=== PATIENT | female | born 1970 | race Caucasian/White ===

== ENCOUNTER 2016-10-29 05:44 | Emergency (ER) | payer OTHER ==
[~2016-10-29] VITALS: Ht 160 cm; Wt 102.0 kg
[~2016-10-29 05:44] MED LIST: DIPH25CA83 PO; FLUT1DIS3 INH; IPRA12.94 IH; METO50TA5 PO; MONT10TA21 PO; OMEP20CA10 PO; P20 PO; PHEN473S12 PO; SIMV20TA6 PO; ZOLP5TAB2 PO
[2016-10-29] MEDS ORDERED: METHYLPREDNISOLONE SOD SUCC 125 MG/2 ML VIAL IV STA (07:10)
[2016-10-29] MEDS ORDERED: ALBUTEROL (0.083%) 2.5MG/3ML NEB HHN STA (07:10)
[2016-10-29] MEDS ORDERED: IPRATROPIUM BROMIDE (0.02%) 0.5MG/2.5ML NEB HHN STA (07:10)
[2016-10-29] MEDS ORDERED: MORPHINE SULFATE 4 MG/ML CPJ (NOT FOR IM USE) IV ONE (07:15)
[2016-10-29 07:27] LABS: BASOPHILS % 0.5 % (0.0-2.0); EOSINOPHILS % 0.8 % (0.0-5.0); HEMATOCRIT. 35.7 % (36.0-48.0); HEMOGLOBIN. 11.5 g/dL (12.0-16.0); LYMPHOCYTES % 31.7 % (20.0-50.0); MEAN CORPUSCULAR HEMOGLOBIN 26.8 pg (28.0-32.0); MEAN CORPUSCULAR VOLUME 83.2 fL (81.0-99.0); MEAN PLATELET VOLUME 7.7 fl (7.4-10.4); MONOCYTES % 4.5 % (2.0-8.0); NEUTROPHILS % 62.5 % (40.0-76.0); PLATELET 351 x1000/uL (130-400); RED CELL DISTRIBUTION WIDTH 15.5 % (11.6-14.6)
[2016-10-29 07:33] LABS: CHLORIDE 107 mEq/L (98-107)
[2016-10-29 07:41] LABS: CARBON DIOXIDE 28 mEq/L (21-32)
[2016-10-29 07:45] LABS: PARTIAL THROMBOPLASTIN TIME 22.1 sec (24.0-34.0); PROTHROMBIN TIME 10.2 sec
[2016-10-29 07:47] VITALS: BP 97/72
[2016-10-29] MEDS ORDERED: SODIUM CHLORIDE 0.9% 1,000 ML IV ONE (09:13)
[2016-10-29] MEDS ORDERED: PREDNISONE 20MG TABLET PO ONE (09:15)
== END 2016-10-29 10:06 | disposition home or self-care (01) ==
LOC: ER 05:48
DX: J44.1 Chronic obstructive pulmonary disease with (acute) exacerbation (principal); J45.909 Unspecified asthma, uncomplicated; F31.9 Bipolar disorder, unspecified; E11.9 Type 2 diabetes mellitus without complications; I10 Essential (primary) hypertension; F14.10 Cocaine abuse, uncomplicated; Z91.013 Allergy to seafood; Z88.0 Allergy status to penicillin; Z88.8 Allergy status to other drugs, medicaments and biological substances; Z79.899 Other long term (current) drug therapy; Z90.49 Acquired absence of other specified parts of digestive tract; Z87.01 Personal history of pneumonia (recurrent)
CPT/HCPCS: 36415; 71010; 80053; 83880; 84484; 85025; 85610; 85730; 93005; 94644; 99285; J2930; J7512; Z7610; J2270; J7030; J7611

== ENCOUNTER 2017-01-17 17:55 | Emergency (ER) | payer OTHER ==
[~2017-01-17] VITALS: Ht 162.6 cm; Wt 85.0 kg
[~2017-01-17 17:55] MED LIST changes: +ATROV IH; -IPRA12.94 IH; +LEVO500T15 PO; +LIDOCAINE HCL/PF 1% 2ML VIAL ONE; -METO50TA5 PO; -ZOLP5TAB2 PO
[2017-01-17] MEDS ORDERED: IBUPROFEN 600MG TABLET PO STA (18:30)
[2017-01-17] MEDS ORDERED: ACETAMINOPHEN 325MG TABLET PO ONE ×2 (18:45→21:45)
[2017-01-17 18:58] LABS: BG BASE EXCESS -3.9 mmol/L (-2.0-2.0); BG CARBOXYHEMOGLOBIN 0.7 % (0.5-1.5); BG FRACTION INSPIRED OXYGEN 28; BG METHEMOGLOBIN 0.4 % (0.0-1.5); BG OXYHEMOGLOBIN 96.9 % (94.0-97.0); BG PCO2 32.9 mmHg (35.0-45.0); BG PH 7.402 (7.350-7.450); BG PO2 102.8 mmHg (75.0-100.0); BG SAMPLE SITE RIGHT RADIAL; BG TOTAL HEMOGLOBIN 13.1 g/dL (12.0-18.0); BG VENT MODE NASAL CANNULA
[2017-01-17 19:29] LABS: BASOPHILS % 0.4 % (0.0-2.0); EOSINOPHILS % 0.2 % (0.0-5.0); HEMATOCRIT. 36.7 % (36.0-48.0); LYMPHOCYTES % 13.3 % (20.0-50.0); MEAN CORPUSCULAR HEMOGLOBIN 25.8 pg (28.0-32.0); MEAN CORPUSCULAR VOLUME 78.5 fL (81.0-99.0); MEAN PLATELET VOLUME 7.8 fl (7.4-10.4); MONOCYTES % 1.4 % (2.0-8.0); NEUTROPHILS % 84.7 % (40.0-76.0); PLATELET 355 x1000/uL (130-400); RED BLOOD CELL COUNT 4.68 mill/uL (4.2-5.4); RED CELL DISTRIBUTION WIDTH 16.4 % (11.6-14.6)
[2017-01-17 19:33] LABS: CHLORIDE 107 mEq/L (98-107)
[2017-01-17 19:36] LABS: CARBON DIOXIDE 27 mEq/L (21-32)
[2017-01-17] MEDS ORDERED: DILTIAZEM HCL 5MG/ML 5ML VIAL IV ONE (22:45)
[2017-01-17] MEDS ORDERED: DILTIAZEM HCL 240MG ER (24HR) PO ONE (22:45)
[2017-01-17 22:54] VITALS: BP 101/54
== END 2017-01-17 23:11 | disposition home or self-care (01) ==
LOC: ER 18:26
DX: J84.10 Pulmonary fibrosis, unspecified (principal); R05 Cough; E78.00 Pure hypercholesterolemia, unspecified; E11.9 Type 2 diabetes mellitus without complications; I11.9 Hypertensive heart disease without heart failure; J44.9 Chronic obstructive pulmonary disease, unspecified; J45.909 Unspecified asthma, uncomplicated; Z88.0 Allergy status to penicillin; Z91.013 Allergy to seafood; Z91.018 Allergy to other foods; Z90.49 Acquired absence of other specified parts of digestive tract
CPT/HCPCS: 36415; 36600; 71010; 80053; 81025; 82375; 82805; 85025; 85610; 93005; 99285; J3490; Z7610

== ENCOUNTER 2017-01-30 18:47 | Inpatient (IN) | payer MEDICAID, OTHER ==
[~2017-01-30] VITALS: Ht 167.6 cm; Wt 115.9 kg
[~2017-01-30 18:47] MED LIST changes: -LEVO500T15 PO; +LEVO500T2 PO; -LIDOCAINE HCL/PF 1% 2ML VIAL ONE
[2017-01-30 20:11] LABS: BASOPHILS % 0.6 % (0.0-2.0); EOSINOPHILS % 0.8 % (0.0-5.0); HEMATOCRIT. 35.7 % (36.0-48.0); HEMOGLOBIN. 11.6 g/dL (12.0-16.0); LYMPHOCYTES % 29.3 % (20.0-50.0); MEAN CORPUSCULAR HEMOGLOBIN 25.8 pg (28.0-32.0); MEAN CORPUSCULAR VOLUME 79.6 fL (81.0-99.0); MEAN PLATELET VOLUME 7.7 fl (7.4-10.4); MONOCYTES % 5.2 % (2.0-8.0); NEUTROPHILS % 64.1 % (40.0-76.0); PLATELET 378 x1000/uL (130-400); RED BLOOD CELL COUNT 4.48 mill/uL (4.2-5.4); RED CELL DISTRIBUTION WIDTH 17.2 % (11.6-14.6)
[2017-01-30 20:19] LABS: PROTHROMBIN TIME 10.2 sec (9.4-11.6)
[2017-01-30 20:30] LABS: CARBON DIOXIDE 30 mEq/L (21-32); CHLORIDE 107 mEq/L (98-107); TROPONIN I < 0.02 ng/mL (0.00-0.04)
[2017-01-30] MEDS ORDERED: FUROSEMIDE 40MG/4ML VIAL IVP ONE (21:30)
[2017-01-30 22:35] VITALS: BP 105/56
[2017-01-30] MEDS ORDERED: SIMV20TA6 PO (23:19)
[2017-01-30 23:37] VITALS: BP 105/56
[2017-01-30] MEDS ORDERED: DOCUSATE SODIUM 100MG CAPSULE PO PRN (23:45)
[2017-01-30] MEDS ORDERED: ACETAMINOPHEN 325MG TABLET PO PRN (23:45)
[2017-01-30] MEDS ORDERED: MAGNESIUM/ALUMINUM HYDROXIDE/SIMETHICONE 30ML UDC PO PRN (23:45)
[2017-01-30] MEDS ORDERED: CLONIDINE 0.1MG TABLET PO PRN (23:45)
[2017-01-30] MEDS ORDERED: ONDANSETRON HCL 4MG/2ML VIAL IV PRN (23:45)
[2017-01-30] MEDS ORDERED: IPRATROPIUM/ALBUTEROL 0.5-3(2.5)MG/3ML NEB INH PRN (23:45)
[2017-01-30] MEDS ORDERED: HYDROCODONE/ACETAMINOPHEN 5/325MG TABLET PO PRN (23:45)
[2017-01-31] VITALS: BP 98/63
[2017-01-31] MEDS ORDERED: ENOXAPARIN 40MG/0.4ML SYR SUBCUT SCH
[2017-01-31] MEDS: ENOXAPARIN 40MG/0.4ML SYR SUBCUT SCH ×2 (00:30→12:28)
[2017-01-31 04:00] VITALS: BP 97/53
[2017-01-31 05:55] LABS: BASOPHILS % 0.9 % (0.0-2.0); EOSINOPHILS % 3.4 % (0.0-5.0); HEMATOCRIT. 35.3 % (36.0-48.0); HEMOGLOBIN. 11.5 g/dL (12.0-16.0); LYMPHOCYTES % 32.4 % (20.0-50.0); MEAN CORPUSCULAR HEMOGLOBIN 25.8 pg (28.0-32.0); MEAN CORPUSCULAR VOLUME 79.4 fL (81.0-99.0); MONOCYTES % 5.8 % (2.0-8.0); NEUTROPHILS % 57.5 % (40.0-76.0); PLATELET 383 x1000/uL (130-400); RED BLOOD CELL COUNT 4.44 mill/uL (4.2-5.4); RED CELL DISTRIBUTION WIDTH 17.1 % (11.6-14.6)
[2017-01-31 06:18] LABS: CREATINE KINASE 12 IU/L (26-192); CREATINE KINASE MB FRACTION < 0.5 ng/mL (0.5-3.6); TROPONIN I < 0.02 ng/mL (0.00-0.04)
[2017-01-31 08:00] VITALS: BP 96/65
[2017-01-31] MEDS: FUROSEMIDE 40MG/4ML VIAL IV SCH (09:00)
[2017-01-31] MEDS: MORPHINE SULFATE 2 MG/ML CPJ (NOT FOR IM USE) IV PRN ×3 (11:19→23:26)
[2017-01-31 12:00] VITALS: BP 104/63
[2017-01-31 16:00] VITALS: BP 99/59
[2017-01-31] MEDS: IPRATROPIUM/ALBUTEROL 0.5-3(2.5)MG/3ML NEB HHN SCH ×2 (16:00→20:58)
[2017-01-31 16:02] LABS: CLARITY URINE CLEAR (CLEAR); COLOR URINE YELLOW (YELLOW); GLUCOSE URINE NEGATIVE (NEGATIVE); KETONES URINE NEGATIVE (NEGATIVE); LEUKOCYTE ESTERASE URINE TRACE (NEGATIVE); NITRITE URINE NEGATIVE (NEGATIVE); OCCULT BLOOD URINE TRACE (NEGATIVE); PROTEIN URINE NEGATIVE (NEGATIVE); SPECIFIC GRAVITY URINE 1.022 (1.005-1.030)
[2017-01-31 16:22] LABS: *AMPHETAMINES SCREEN URINE NEGATIVE (NEGATIVE); *BARBITURATES SCREEN URINE NEGATIVE (NEGATIVE); *BENZODIAZEPINES SCREEN URINE NEGATIVE (NEGATIVE); CANNABINOID URINE SCREEN NEGATIVE (NEGATIVE); METHADONE URINE SCREEN NEGATIVE (NEGATIVE); PHENCYCLIDINE URINE SCREEN NEGATIVE (NEGATIVE)
[2017-01-31 16:24] LABS: CREATINE KINASE 13 IU/L (26-192); TROPONIN I < 0.02 ng/mL (0.00-0.04)
[2017-01-31 16:25] LABS: CREATINE KINASE MB FRACTION < 0.5 ng/mL (0.5-3.6)
[2017-01-31 16:27] LABS: *COCAINE SCREEN URINE PRESUMTIVE POSITIVE (NEGATIVE); OPIATES URINE SCREEN PRESUMTIVE POSITIVE (NEGATIVE)
[2017-02-01] VITALS: BP 109/61
[2017-02-01 04:00] VITALS: BP 95/46
[2017-02-01] MEDS ORDERED: DEXTROSE 50% WATER 50ML SYRINGE IV PRN (05:45)
[2017-02-01] MEDS: INSULIN LISPRO 100 UNITS/ML SUBCUT SCH ×4 (06:25→20:19)
[2017-02-01] MEDS: BLOOD SUGAR DIAGNOSTIC STRIP TEST SCH ×4 (06:25→20:03)
[2017-02-01 06:57] LABS: BASOPHILS % 0.9 % (0.0-2.0); HEMATOCRIT. 34.7 % (36.0-48.0); HEMOGLOBIN. 11.3 g/dL (12.0-16.0); LYMPHOCYTES % 34.2 % (20.0-50.0); MEAN CORPUSCULAR HEMOGLOBIN 25.7 pg (28.0-32.0); MEAN CORPUSCULAR VOLUME 78.8 fL (81.0-99.0); MEAN PLATELET VOLUME 7.9 fl (7.4-10.4); MONOCYTES % 6.6 % (2.0-8.0); NEUTROPHILS % 52.3 % (40.0-76.0); PLATELET 352 x1000/uL (130-400); RED BLOOD CELL COUNT 4.41 mill/uL (4.2-5.4); RED CELL DISTRIBUTION WIDTH 17.1 % (11.6-14.6)
[2017-02-01 07:22] LABS: CARBON DIOXIDE 29 mEq/L (21-32); CHLORIDE 103 mEq/L (98-107)
[2017-02-01 07:28] LABS: TROPONIN I < 0.02 ng/mL (0.00-0.04)
[2017-02-01 08:03] VITALS: BP 93/55
[2017-02-01] MEDS: IPRATROPIUM/ALBUTEROL 0.5-3(2.5)MG/3ML NEB HHN SCH ×2 (08:05)
[2017-02-01] MEDS: FUROSEMIDE 40MG/4ML VIAL IV SCH (08:26)
[2017-02-01] MEDS: MORPHINE SULFATE 2 MG/ML CPJ (NOT FOR IM USE) IV PRN ×3 (08:34→20:31)
[2017-02-01 11:14] VITALS: BP 110/73
[2017-02-01] MEDS: ENOXAPARIN 40MG/0.4ML SYR SUBCUT SCH ×2 (12:17)
[2017-02-01] MEDS ORDERED: HYDR-4001 PO (13:01)
[2017-02-01] MEDS: METHYLPREDNISOLONE SOD SUCC 125 MG/2 ML VIAL IV SCH ×2 (14:20→20:12)
[2017-02-01] MEDS ORDERED: AMLODIPINE 5MG TABLET PO SCH (15:00)
[2017-02-01 16:00] VITALS: BP 87/55
[2017-02-01 20:00] VITALS: BP 134/87
[2017-02-01] MEDS ORDERED: IPRATROPIUM BROMIDE (0.02%) 0.5MG/2.5ML NEB HHN SCH (22:15)
[2017-02-02] VITALS: BP 102/65
[2017-02-02] MEDS: ENOXAPARIN 40MG/0.4ML SYR SUBCUT SCH ×2 (00:41→12:00)
[2017-02-02] MEDS: MORPHINE SULFATE 2 MG/ML CPJ (NOT FOR IM USE) IV PRN ×3 (00:55→12:05)
[2017-02-02] MEDS: IPRATROPIUM BROMIDE (0.02%) 0.5MG/2.5ML NEB HHN SCH ×3 (01:11→11:27)
[2017-02-02] MEDS: METHYLPREDNISOLONE SOD SUCC 125 MG/2 ML VIAL IV SCH (06:21)
[2017-02-02] MEDS: BLOOD SUGAR DIAGNOSTIC STRIP TEST SCH ×2 (06:21→12:05)
[2017-02-02] MEDS: INSULIN LISPRO 100 UNITS/ML SUBCUT SCH ×2 (06:22→12:22)
[2017-02-02] MEDS: AMLODIPINE 5MG TABLET PO SCH ×2 (09:00→09:54)
[2017-02-02 09:06] VITALS: BP 114/80
[2017-02-02] MEDS: FUROSEMIDE 40MG/4ML VIAL IV SCH (09:54)
[2017-02-02 12:24] VITALS: BP 115/76
[2017-02-02 13:22] VITALS: BP 115/76
[2017-02-03] MEDS ORDERED: PREDNISONE 20MG TABLET PO SCH (09:00)
== END 2017-02-02 15:00 | disposition home or self-care (01) | DRG 140 ==
LOC: ER 19:20 → 5WST 19:28 → EDBEDREQ 19:37 → ENRESERV 21:27
PROVIDERS: ADMIT Internal Medicine; ATTEND Internal Medicine
DX: J44.0 Chronic obstructive pulmonary disease with (acute) lower respiratory infection (principal); J96.20 Acute and chronic respiratory failure, unspecified whether with hypoxia or hypercapnia; I50.33 Acute on chronic diastolic (congestive) heart failure; J18.9 Pneumonia, unspecified organism; I95.9 Hypotension, unspecified; I24.9 Acute ischemic heart disease, unspecified; J84.10 Pulmonary fibrosis, unspecified; I11.0 Hypertensive heart disease with heart failure; Z99.81 Dependence on supplemental oxygen; J44.1 Chronic obstructive pulmonary disease with (acute) exacerbation; M54.10 Radiculopathy, site unspecified; G89.29 Other chronic pain; F31.9 Bipolar disorder, unspecified; F14.10 Cocaine abuse, uncomplicated; E11.9 Type 2 diabetes mellitus without complications; E78.00 Pure hypercholesterolemia, unspecified; E78.5 Hyperlipidemia, unspecified; Z79.899 Other long term (current) drug therapy; Z88.0 Allergy status to penicillin; Z91.013 Allergy to seafood; Z91.018 Allergy to other foods; Z90.49 Acquired absence of other specified parts of digestive tract; I25.2 Old myocardial infarction; Z87.891 Personal history of nicotine dependence; Z80.9 Family history of malignant neoplasm, unspecified; Z83.3 Family history of diabetes mellitus; Z82.49 Family history of ischemic heart disease and other diseases of the circulatory system
CPT/HCPCS: 36415; 71010; 80053; 80305; 81001; 82550; 82553; 82962; 83735; 83880; 84443; 84484; 85025; 85379; 85610; 93005; 93970; 94640; 99285; C1893; J1650; J1815; J1940; J2270; J2930; J7620

== ENCOUNTER 2017-02-23 23:25 | Emergency (ER) | payer MEDICAID ==
[~2017-02-23] VITALS: Ht 165.1 cm; Wt 100.0 kg
[~2017-02-23 23:25] MED LIST changes: -FLUT1DIS3 INH; +HYDR-4001 PO; -LEVO500T2 PO; -PHEN473S12 PO
[2017-02-23] MEDS ORDERED: HYDROCODONE/ACETAMINOPHEN 5/325MG TABLET PO ONE (23:45)
[2017-02-24 05:05] VITALS: BP 109/56
== END 2017-02-24 05:08 | disposition home or self-care (01) ==
LOC: ER 23:40
DX: S09.90XA Unspecified injury of head, initial encounter (principal); S70.00XA Contusion of unspecified hip, initial encounter; J44.9 Chronic obstructive pulmonary disease, unspecified; I10 Essential (primary) hypertension; E78.00 Pure hypercholesterolemia, unspecified; E11.9 Type 2 diabetes mellitus without complications; Z88.0 Allergy status to penicillin; Z91.013 Allergy to seafood; W19.XXXA Unspecified fall, initial encounter; Y93.89 Activity, other specified; Y92.89 Other specified places as the place of occurrence of the external cause; Y99.8 Other external cause status
CPT/HCPCS: 70450; 72125; 72192; 73700; 99284; Z7610

== ENCOUNTER 2017-03-02 22:59 | Inpatient (IN) | payer MEDICAID ==
[~2017-03-02] VITALS: Ht 160 cm; Wt 107.0 kg
[2017-03-02] MEDS ORDERED: METHYLPREDNISOLONE SOD SUCC 125 MG/2 ML VIAL IV STA (23:05)
[2017-03-02] MEDS ORDERED: IPRATROPIUM BROMIDE (0.02%) 0.5MG/2.5ML NEB HHN STA (23:05)
[2017-03-02] MEDS ORDERED: MAGNESIUM 2 G PREMIX 50 ML IV ONE (23:15)
[2017-03-02] MEDS: ALBUTEROL (0.083%) 2.5MG/3ML NEB HHN SCH (23:30)
[2017-03-02 23:56] LABS: INR 1.1; PROTHROMBIN TIME 11.1 sec (9.4-11.6)
[2017-03-02 23:58] LABS: BASOPHILS % 0.5 % (0.0-2.0); EOSINOPHILS % 2.5 % (0.0-5.0); HEMATOCRIT. 34.2 % (36.0-48.0); HEMOGLOBIN. 10.9 g/dL (12.0-16.0); LYMPHOCYTES % 47.7 % (20.0-50.0); MEAN CORPUSCULAR HEMOGLOBIN 25.5 pg (28.0-32.0); MEAN CORPUSCULAR VOLUME 79.9 fL (81.0-99.0); MEAN PLATELET VOLUME 7.8 fl (7.4-10.4); MONOCYTES % 6.1 % (2.0-8.0); NEUTROPHILS % 43.2 % (40.0-76.0); PLATELET 421 x1000/uL (130-400); RED BLOOD CELL COUNT 4.28 mill/uL (4.2-5.4); RED CELL DISTRIBUTION WIDTH 17.2 % (11.6-14.6)
[2017-03-03 00:03] LABS: CARBON DIOXIDE 25 mEq/L (21-32); CHLORIDE 104 mEq/L (98-107); TROPONIN I 0.29 ng/mL (0.00-0.04)
[2017-03-03] MEDS: ALBUTEROL (0.083%) 2.5MG/3ML NEB HHN SCH ×2 (00:30)
[2017-03-03] MEDS ORDERED: MORPHINE SULFATE 4 MG/ML CPJ (NOT FOR IM USE) IV ONE ×2 (00:45→05:45)
[2017-03-03] MEDS ORDERED: LORAZEPAM 2MG/ML CPJ IV ONE (00:45)
[2017-03-03] MEDS ORDERED: ASPIRIN 81MG TABLET PO ONE (03:00)
[2017-03-03 11:05] VITALS: BP 109/71
[2017-03-03 11:44] VITALS: BP 109/71
[2017-03-03] MEDS ORDERED: DOCUSATE SODIUM 100MG CAPSULE PO PRN (12:00)
[2017-03-03] MEDS ORDERED: IPRATROPIUM/ALBUTEROL 0.5-3(2.5)MG/3ML NEB INH PRN ×2 (12:00)
[2017-03-03] MEDS ORDERED: ONDANSETRON HCL 4MG/2ML VIAL IV PRN (12:00)
[2017-03-03] MEDS ORDERED: FUROSEMIDE 40MG/4ML VIAL IV SCH (12:00)
[2017-03-03] MEDS ORDERED: ACETAMINOPHEN 325MG TABLET PO PRN (12:00)
[2017-03-03] MEDS ORDERED: LORAZEPAM 1MG TABLET PO PRN (12:00)
[2017-03-03] MEDS ORDERED: CLONIDINE 0.1MG TABLET PO PRN (12:00)
[2017-03-03] MEDS ORDERED: DIPHENHYDRAMINE 25MG CAPSULE PO PRN (12:00)
[2017-03-03] MEDS ORDERED: OMEPRAZOLE 20MG CAPSULE EXTENDED RELEASE PO SCH (12:00)
[2017-03-03] MEDS ORDERED: DIPHENHYDRAMINE 50MG/ML VIAL IV PRN (12:00)
[2017-03-03] MEDS ORDERED: CEFTRIAXONE 1 G PREMIX 50 ML IV SCH (14:00)
[2017-03-03] MEDS: HYDROCODONE/ACETAMINOPHEN 10/325MG TABLET PO PRN ×2 (14:25→18:33)
[2017-03-03 16:00] VITALS: BP 102/69
[2017-03-03] MEDS ORDERED: ONDANSETRON HCL 4MG/2ML VIAL IM PRN (18:00)
[2017-03-03] MEDS ORDERED: IPRATROPIUM/ALBUTEROL 0.5-3(2.5)MG/3ML NEB HHN PRN (18:15)
[2017-03-03 20:00] VITALS: BP 102/67
[2017-03-03 20:41] LABS: TROPONIN I 0.1 ng/mL (0.00-0.04)
[2017-03-03] MEDS ORDERED: MONTELUKAST SODIUM 10MG TABLET PO SCH (21:00)
[2017-03-04] MEDS ORDERED: FUROSEMIDE 40MG TABLET PO SCH (09:00)
[2017-03-04] MEDS ORDERED: LEVOFLOXACIN 500MG TABLET PO SCH (21:00)
== END 2017-03-03 20:48 | disposition left against medical advice (07) | DRG 194 ==
LOC: ER 23:04 → 7WST 03-03 03:06 → EDBEDREQ 03-03 10:04 → ENRESERV 03-03 10:06
PROVIDERS: ADMIT Internal Medicine; ATTEND Internal Medicine
PROC: 5A09357 Assistance with Respiratory Ventilation, Less than 24 Consecutive Hours, Continuous Positive Airway Pressure (ICD-10-PCS; principal; 2017-03-03)
DX: I11.0 Hypertensive heart disease with heart failure (principal); J96.11 Chronic respiratory failure with hypoxia; Z99.81 Dependence on supplemental oxygen; E44.0 Moderate protein-calorie malnutrition; F11.20 Opioid dependence, uncomplicated; D50.9 Iron deficiency anemia, unspecified; F14.10 Cocaine abuse, uncomplicated; Z68.41 Body mass index [BMI] 40.0-44.9, adult; J44.9 Chronic obstructive pulmonary disease, unspecified; I50.33 Acute on chronic diastolic (congestive) heart failure; R55 Syncope and collapse; F17.210 Nicotine dependence, cigarettes, uncomplicated; Z53.21 Procedure and treatment not carried out due to patient leaving prior to being seen by health care provider; E66.01 Morbid (severe) obesity due to excess calories; M54.9 Dorsalgia, unspecified; G89.29 Other chronic pain; Z82.49 Family history of ischemic heart disease and other diseases of the circulatory system; Z88.6 Allergy status to analgesic agent; Z88.0 Allergy status to penicillin; Z91.013 Allergy to seafood; Z88.8 Allergy status to other drugs, medicaments and biological substances; Z91.018 Allergy to other foods; Z79.899 Other long term (current) drug therapy; Z90.49 Acquired absence of other specified parts of digestive tract
CPT/HCPCS: 36415; 71010; 80053; 82550; 83880; 84484; 85025; 85610; 93005; 93880; 94640; 94660; 96374; 96375; 96376; 99285; J0696; J1940; J2060; J2270; J2930; J3475; J7050; J7611; J7620

== ENCOUNTER 2017-03-26 14:44 | Emergency (ER) | payer MEDICAID ==
[~2017-03-26] VITALS: Ht 157.5 cm; Wt 91.0 kg
[2017-03-26 17:54] LABS: EOSINOPHILS % 4.1 % (0.0-5.0); HEMATOCRIT. 37.9 % (36.0-48.0); LYMPHOCYTES % 32.8 % (20.0-50.0); MEAN CORPUSCULAR HEMOGLOBIN 25.1 pg (28.0-32.0); MEAN CORPUSCULAR VOLUME 79.4 fL (81.0-99.0); MEAN PLATELET VOLUME 7.7 fl (7.4-10.4); MONOCYTES % 6.7 % (2.0-8.0); NEUTROPHILS % 55.4 % (40.0-76.0); PLATELET 351 x1000/uL (130-400); RED BLOOD CELL COUNT 4.77 mill/uL (4.2-5.4); RED CELL DISTRIBUTION WIDTH 17.6 % (11.6-14.6)
[2017-03-26 18:02] LABS: HCG SCREEN NEGATIVE
[2017-03-26 18:04] LABS: CARBON DIOXIDE 28 mEq/L (21-32); CHLORIDE 106 mEq/L (98-107); ETHANOL BLOOD < 10 mg/dL
[2017-03-26] MEDS ORDERED: MORPHINE SULFATE 10 MG/ML CPJ IM ONE (22:30)
[2017-03-26 22:42] LABS: CLARITY URINE TURBID (CLEAR); COLOR URINE DARK YELLOW (YELLOW); GLUCOSE URINE NEGATIVE (NEGATIVE); KETONES URINE TRACE (NEGATIVE); LEUKOCYTE ESTERASE URINE 2+ (NEGATIVE); NITRITE URINE POSITIVE (NEGATIVE); OCCULT BLOOD URINE 2+ (NEGATIVE); PROTEIN URINE TRACE (NEGATIVE); SPECIFIC GRAVITY URINE 1.024 (1.005-1.030)
[2017-03-26 22:55] LABS: *AMPHETAMINES SCREEN URINE NEGATIVE (NEGATIVE); *BARBITURATES SCREEN URINE NEGATIVE (NEGATIVE); *BENZODIAZEPINES SCREEN URINE NEGATIVE (NEGATIVE); CANNABINOID URINE SCREEN NEGATIVE (NEGATIVE); PHENCYCLIDINE URINE SCREEN NEGATIVE (NEGATIVE)
[2017-03-26 23:09] LABS: *COCAINE SCREEN URINE PRESUMTIVE POSITIVE (NEGATIVE); METHADONE URINE SCREEN PRESUMTIVE POSITIVE (NEGATIVE)
[2017-03-26 23:10] LABS: OPIATES URINE SCREEN PRESUMTIVE POSITIVE (NEGATIVE)
[2017-03-27 00:20] VITALS: BP 131/74
== END 2017-03-27 02:03 | disposition home or self-care (01) ==
LOC: ER 14:58
DX: R45.851 Suicidal ideations (principal); N39.0 Urinary tract infection, site not specified; R44.0 Auditory hallucinations; I11.0 Hypertensive heart disease with heart failure; I50.9 Heart failure, unspecified; J44.9 Chronic obstructive pulmonary disease, unspecified; E11.9 Type 2 diabetes mellitus without complications; F32.9 Major depressive disorder, single episode, unspecified; Z88.0 Allergy status to penicillin; Z88.6 Allergy status to analgesic agent; Z91.013 Allergy to seafood; Z91.018 Allergy to other foods
CPT/HCPCS: 36415; 80048; 80305; 81001; 84703; 85025; 87077; 87086; 87186; 96372; 99284; G0482; J2270; Z7610

== ENCOUNTER 2017-04-04 21:18 | Emergency (ER) | payer MEDICAID ==
[~2017-04-04] VITALS: Ht 160 cm; Wt 111.0 kg
[2017-04-04 21:37] VITALS: BP 104/60
[2017-04-04 22:48] LABS: BASOPHILS % 0.5 % (0.0-2.0); EOSINOPHILS % 2.9 % (0.0-5.0); HEMATOCRIT. 38.5 % (36.0-48.0); HEMOGLOBIN. 12.7 g/dL (12.0-16.0); LYMPHOCYTES % 31.7 % (20.0-50.0); MEAN CORPUSCULAR HEMOGLOBIN 25.7 pg (28.0-32.0); MEAN CORPUSCULAR VOLUME 78.2 fL (81.0-99.0); MEAN PLATELET VOLUME 7.8 fl (7.4-10.4); MONOCYTES % 7.1 % (2.0-8.0); NEUTROPHILS % 57.8 % (40.0-76.0); PLATELET 346 x1000/uL (130-400); RED BLOOD CELL COUNT 4.92 mill/uL (4.2-5.4); RED CELL DISTRIBUTION WIDTH 17.1 % (11.6-14.6)
[2017-04-04 22:53] LABS: PROTHROMBIN TIME 10.7 sec (9.4-11.6)
[2017-04-04 23:03] LABS: CARBON DIOXIDE 30 mEq/L (21-32); CHLORIDE 102 mEq/L (98-107)
[2017-04-04 23:04] LABS: TROPONIN I < 0.02 ng/mL (0.00-0.04)
[2017-04-04] MEDS ORDERED: ACETAMINOPHEN 325MG TABLET PO ONE (23:45)
== END 2017-04-05 00:10 | disposition home or self-care (01) ==
LOC: ER 21:51
DX: R07.89 Other chest pain (principal); J84.10 Pulmonary fibrosis, unspecified; I50.9 Heart failure, unspecified; M41.9 Scoliosis, unspecified; Z99.81 Dependence on supplemental oxygen; Z86.59 Personal history of other mental and behavioral disorders; Z88.0 Allergy status to penicillin; Z91.013 Allergy to seafood; Z88.8 Allergy status to other drugs, medicaments and biological substances; Z91.018 Allergy to other foods
CPT/HCPCS: 36415; 71010; 80053; 83880; 84484; 85025; 85610; 93005; 99285; Z7610

== ENCOUNTER 2017-04-07 15:26 | Emergency (ER) | payer MEDICAID ==
[~2017-04-07] VITALS: Ht 165.1 cm; Wt 100.0 kg
[2017-04-07] MEDS ORDERED: MORPHINE SULFATE 4 MG/ML CPJ (NOT FOR IM USE) IV STA (15:58)
[2017-04-07] MEDS ORDERED: ONDANSETRON HCL 4MG/2ML VIAL IV STA (15:58)
[2017-04-07] MEDS ORDERED: SODIUM CHLORIDE 0.9% 1,000 ML IV ONE (15:58)
[2017-04-07 16:31] LABS: BASOPHILS % 0.5 % (0.0-2.0); LYMPHOCYTES % 27.7 % (20.0-50.0); MEAN CORPUSCULAR HEMOGLOBIN 25.7 pg (28.0-32.0); MEAN CORPUSCULAR VOLUME 79.1 fL (81.0-99.0); MONOCYTES % 7.4 % (2.0-8.0); NEUTROPHILS % 54.4 % (40.0-76.0); PLATELET 289 x1000/uL (130-400); RED BLOOD CELL COUNT 4.68 mill/uL (4.2-5.4); RED CELL DISTRIBUTION WIDTH 16.9 % (11.6-14.6)
[2017-04-07 16:33] LABS: HCG SCREEN NEGATIVE
[2017-04-07 16:36] LABS: CHLORIDE 103 mEq/L (98-107)
[2017-04-07 16:37] LABS: PROTHROMBIN TIME 10.8 sec (9.4-11.6)
[2017-04-07 16:40] LABS: CARBON DIOXIDE 30 mEq/L (21-32)
[2017-04-07] MEDS ORDERED: IOHEXOL-300 100 ML BOTTLE ONE (17:31)
[2017-04-07 20:50] LABS: GLUCOSE URINE NEGATIVE (NEGATIVE); KETONES URINE NEGATIVE (NEGATIVE); LEUKOCYTE ESTERASE URINE 1+ (NEGATIVE); NITRITE URINE POSITIVE (NEGATIVE); OCCULT BLOOD URINE 2+ (NEGATIVE); PROTEIN URINE NEGATIVE (NEGATIVE); SPECIFIC GRAVITY URINE 1.072 (1.005-1.030)
[2017-04-07 20:55] LABS: CLARITY URINE CLOUDY (CLEAR); COLOR URINE YELLOW (YELLOW)
[2017-04-07 23:00] VITALS: BP 95/62
== END 2017-04-07 23:00 | disposition home or self-care (01) ==
LOC: ER 15:40
DX: N39.0 Urinary tract infection, site not specified (principal); R11.2 Nausea with vomiting, unspecified; R19.7 Diarrhea, unspecified; R50.9 Fever, unspecified; F41.9 Anxiety disorder, unspecified; I11.0 Hypertensive heart disease with heart failure; I50.9 Heart failure, unspecified; F14.10 Cocaine abuse, uncomplicated; F31.9 Bipolar disorder, unspecified; Z90.49 Acquired absence of other specified parts of digestive tract; Z87.01 Personal history of pneumonia (recurrent); Z88.0 Allergy status to penicillin; Z88.1 Allergy status to other antibiotic agents; Z88.6 Allergy status to analgesic agent; Z91.018 Allergy to other foods; Z91.013 Allergy to seafood
CPT/HCPCS: 36415; 74177; 80053; 81001; 83690; 84703; 85025; 85610; 96361; 96374; 96375; 99285; J2270; J2405; Q9967; Z7610; J7030

== ENCOUNTER 2017-05-10 00:54 | Emergency (ER) | payer MEDICAID ==
[~2017-05-10] VITALS: Ht 160 cm; Wt 90.0 kg
[2017-05-10] MEDS ORDERED: METHYLPREDNISOLONE SOD SUCC 125 MG/2 ML VIAL IV STA (03:09)
[2017-05-10] MEDS ORDERED: IPRATROPIUM/ALBUTEROL 0.5-3(2.5)MG/3ML NEB HHN ONE (03:15)
[2017-05-10 03:48] LABS: BASOPHILS % 0.7 % (0.0-2.0); CHLORIDE 105 mEq/L (98-107); EOSINOPHILS % 6.1 % (0.0-5.0); HEMATOCRIT. 38.4 % (36.0-48.0); HEMOGLOBIN. 12.6 g/dL (12.0-16.0); LYMPHOCYTES % 31.9 % (20.0-50.0); MEAN CORPUSCULAR HEMOGLOBIN 25.3 pg (28.0-32.0); MEAN CORPUSCULAR VOLUME 77.2 fL (81.0-99.0); MEAN PLATELET VOLUME 7.9 fl (7.4-10.4); MONOCYTES % 6.5 % (2.0-8.0); NEUTROPHILS % 54.8 % (40.0-76.0); PLATELET 330 x1000/uL (130-400); RED BLOOD CELL COUNT 4.98 mill/uL (4.2-5.4); RED CELL DISTRIBUTION WIDTH 17.7 % (11.6-14.6)
[2017-05-10 03:58] LABS: CARBON DIOXIDE 30 mEq/L (21-32)
[2017-05-10] MEDS ORDERED: ACETAMINOPHEN 325MG TABLET PO ONE (04:45)
[2017-05-10 05:01] LABS: CLARITY URINE CLOUDY (CLEAR); COLOR URINE YELLOW (YELLOW); KETONES URINE NEGATIVE (NEGATIVE); LEUKOCYTE ESTERASE URINE 1+ (NEGATIVE); NITRITE URINE NEGATIVE (NEGATIVE); OCCULT BLOOD URINE NEGATIVE (NEGATIVE); PROTEIN URINE NEGATIVE (NEGATIVE); SPECIFIC GRAVITY URINE 1.021 (1.005-1.030)
[2017-05-10 05:22] LABS: *AMPHETAMINES SCREEN URINE NEGATIVE (NEGATIVE); *BARBITURATES SCREEN URINE NEGATIVE (NEGATIVE); *BENZODIAZEPINES SCREEN URINE NEGATIVE (NEGATIVE); CANNABINOID URINE SCREEN NEGATIVE (NEGATIVE); PHENCYCLIDINE URINE SCREEN NEGATIVE (NEGATIVE)
[2017-05-10 05:25] LABS: *COCAINE SCREEN URINE PRESUMTIVE POSITIVE (NEGATIVE); METHADONE URINE SCREEN PRESUMTIVE POSITIVE (NEGATIVE); OPIATES URINE SCREEN PRESUMTIVE POSITIVE (NEGATIVE)
[2017-05-10 07:42] VITALS: BP 107/50
== END 2017-05-10 07:48 | disposition home or self-care (01) ==
LOC: ER 01:01
DX: J06.9 Acute upper respiratory infection, unspecified (principal); N39.0 Urinary tract infection, site not specified; I11.0 Hypertensive heart disease with heart failure; I50.9 Heart failure, unspecified; J84.10 Pulmonary fibrosis, unspecified; Z88.0 Allergy status to penicillin; Z99.81 Dependence on supplemental oxygen; Z86.59 Personal history of other mental and behavioral disorders
CPT/HCPCS: 36415; 71010; 80053; 80305; 81001; 83690; 83880; 85025; 93005; 94640; 96374; 99285; J2930; Z7610; J7620

== ENCOUNTER 2017-07-11 19:19 | Emergency (ER) | payer MEDICAID ==
[~2017-07-11] VITALS: Ht 172.7 cm; Wt 113.0 kg
[~2017-07-11 19:19] MED LIST changes: -OMEP20CA10 PO; -P20 PO
[2017-07-11] MEDS ORDERED: IPRATROPIUM BROMIDE (0.02%) 0.5MG/2.5ML NEB HHN STA (22:55)
[2017-07-11] MEDS ORDERED: METHYLPREDNISOLONE SOD SUCC 125 MG/2 ML VIAL IV STA (22:55)
[2017-07-11] MEDS ORDERED: ALBUTEROL (0.083%) 2.5MG/3ML NEB HHN STA (22:55)
[2017-07-11] MEDS ORDERED: ASPIRIN 81MG TABLET PO ONE (23:00)
[2017-07-11] MEDS ORDERED: MAGNESIUM 2 G PREMIX 50 ML IV ONE (23:00)
[2017-07-11 23:30] LABS: BASOPHILS % 0.2 % (0.0-2.0); HEMATOCRIT. 36.5 % (36.0-48.0); HEMOGLOBIN. 11.9 g/dL (12.0-16.0); LYMPHOCYTES % 16.9 % (20.0-50.0); MEAN CORPUSCULAR HEMOGLOBIN 26.1 pg (28.0-32.0); MEAN CORPUSCULAR VOLUME 79.8 fL (81.0-99.0); MEAN PLATELET VOLUME 7.8 fl (7.4-10.4); MONOCYTES % 1.6 % (2.0-8.0); NEUTROPHILS % 81.3 % (40.0-76.0); PLATELET 434 x1000/uL (130-400); RED BLOOD CELL COUNT 4.58 mill/uL (4.2-5.4); RED CELL DISTRIBUTION WIDTH 21.7 % (11.6-14.6)
[2017-07-11 23:44] LABS: PARTIAL THROMBOPLASTIN TIME 21.9 sec (23.4-31.0); PROTHROMBIN TIME 10.3 sec (9.4-11.6)
[2017-07-11 23:45] LABS: HCG SCREEN NEGATIVE
[2017-07-11 23:52] LABS: CHLORIDE 105 mEq/L (98-107)
[2017-07-12] MEDS ORDERED: LEVOFLOXACIN 500MG PREMIX 100 ML IV ONE
[2017-07-12 00:57] LABS: CLARITY URINE CLEAR (CLEAR); COLOR URINE YELLOW (YELLOW); KETONES URINE NEGATIVE (NEGATIVE); LEUKOCYTE ESTERASE URINE TRACE (NEGATIVE); NITRITE URINE NEGATIVE (NEGATIVE); OCCULT BLOOD URINE NEGATIVE (NEGATIVE); PH URINE 7.5 (4.5-8.0); PROTEIN URINE NEGATIVE (NEGATIVE); SPECIFIC GRAVITY URINE 1.022 (1.005-1.030)
[2017-07-12] MEDS ORDERED: FUROSEMIDE 20MG/2ML VIAL IVP ONE (01:00)
[2017-07-12 01:13] LABS: *AMPHETAMINES SCREEN URINE NEGATIVE (NEGATIVE); *BARBITURATES SCREEN URINE NEGATIVE (NEGATIVE); *BENZODIAZEPINES SCREEN URINE NEGATIVE (NEGATIVE); CANNABINOID URINE SCREEN NEGATIVE (NEGATIVE); METHADONE URINE SCREEN NEGATIVE (NEGATIVE); PHENCYCLIDINE URINE SCREEN NEGATIVE (NEGATIVE)
[2017-07-12 01:16] LABS: *COCAINE SCREEN URINE PRESUMTIVE POSITIVE (NEGATIVE); OPIATES URINE SCREEN PRESUMTIVE POSITIVE (NEGATIVE)
[2017-07-12] MEDS: ACETAMINOPHEN 325MG TABLET PO ONE ×3 (01:32→01:39)
[2017-07-12] MEDS ORDERED: HYDROCODONE/ACETAMINOPHEN 5/325MG TABLET PO PRN (08:30)
[2017-07-12 09:45] VITALS: BP 136/58
[2017-07-26] MEDS ORDERED: OMEP20CA10 PO (13:07)
[2017-07-26] MEDS ORDERED: MORPHINE PO (13:07)
[2017-07-26] MEDS ORDERED: PROM5SYR PO (13:07)
[2017-07-26] MEDS ORDERED: TRAM50TA3 PO (13:07)
[2017-07-26] MEDS ORDERED: METH-611 PO (13:07)
[2017-07-26] MEDS ORDERED: ASPI-1159 PO (13:07)
[2017-07-26] MEDS ORDERED: TEMA15CA5 PO (13:07)
[2017-07-26] MEDS ORDERED: P20 PO (13:07)
[2017-07-26] MEDS ORDERED: FLUT1DIS3 IH (13:07)
== END 2017-07-12 10:48 | disposition left against medical advice (07) ==
LOC: ER 19:23 → EDBEDREQDT 07-12 00:53 → EDBEDREQ 07-12 00:53 → EDBEDREQTM 07-12 00:53 → ENRESERV 07-12 10:16 → CANRESERV 07-12 10:16 → ER 07-12 10:48 → CANBEDREQ 07-12 11:34
DX: I11.0 Hypertensive heart disease with heart failure (principal); I50.43 Acute on chronic combined systolic (congestive) and diastolic (congestive) heart failure; J18.9 Pneumonia, unspecified organism; E11.65 Type 2 diabetes mellitus with hyperglycemia; J84.10 Pulmonary fibrosis, unspecified; F14.10 Cocaine abuse, uncomplicated; R00.0 Tachycardia, unspecified; E46 Unspecified protein-calorie malnutrition; R68.89 Other general symptoms and signs; Z68.37 Body mass index [BMI] 37.0-37.9, adult; Z88.6 Allergy status to analgesic agent; Z88.0 Allergy status to penicillin; Z91.013 Allergy to seafood; Z91.018 Allergy to other foods; Z90.49 Acquired absence of other specified parts of digestive tract; Z99.81 Dependence on supplemental oxygen; Z79.82 Long term (current) use of aspirin
CPT/HCPCS: 36415; 70450; 71045; 80053; 80305; 81001; 83605; 83690; 83880; 84484; 84703; 85025; 85610; 85730; 87040; 87086; 87804; 93005; 94640; 96365; 96368; 96375; 99291; J1940; J1956; J2930; J3475; J7040; J7611; Z7610

== ENCOUNTER 2017-07-16 18:37 | Emergency (ER) | payer MEDICAID ==
[~2017-07-16] VITALS: Ht 162.6 cm; Wt 100.0 kg
[2017-07-16 18:40] VITALS: BP 110/70
[2017-07-26] MEDS ORDERED: PROM5SYR PO (13:07)
[2017-07-26] MEDS ORDERED: METH-611 PO (13:07)
[2017-07-26] MEDS ORDERED: TEMA15CA5 PO (13:07)
[2017-07-26] MEDS ORDERED: MORPHINE PO (13:07)
[2017-07-26] MEDS ORDERED: ASPI-1159 PO (13:07)
[2017-07-26] MEDS ORDERED: P20 PO (13:07)
[2017-07-26] MEDS ORDERED: OMEP20CA10 PO (13:07)
[2017-07-26] MEDS ORDERED: FLUT1DIS3 IH (13:07)
[2017-07-26] MEDS ORDERED: TRAM50TA3 PO (13:07)
== END 2017-07-16 19:20 | disposition left against medical advice (07) ==
LOC: ER 18:49
DX: R06.02 Shortness of breath (principal); I11.0 Hypertensive heart disease with heart failure; I50.9 Heart failure, unspecified; E11.9 Type 2 diabetes mellitus without complications; F14.10 Cocaine abuse, uncomplicated; Z90.49 Acquired absence of other specified parts of digestive tract; Z91.013 Allergy to seafood
CPT/HCPCS: 99283

== ENCOUNTER 2017-09-16 18:20 | Emergency (ER) | payer MEDICAID ==
[~2017-09-16] VITALS: Ht 160 cm; Wt 60.0 kg
[~2017-09-16 18:20] MED LIST changes: +ASPI-1159 PO; +FLUT1DIS3 IH; -HYDR-4001 PO; +METH-611 PO; +MORPHINE PO; +OMEP20CA10 PO; +TEMA15CA5 PO; +TRAM50TA3 PO
[2017-09-16] MEDS ORDERED: SODIUM CHLORIDE 0.9% 1,000 ML IV ONE (18:52)
[2017-09-16] MEDS ORDERED: MORPHINE SULFATE 4 MG/ML CPJ (NOT FOR IM USE) IV STA (18:52)
[2017-09-16 20:20] LABS: BASOPHILS % 0.6 % (0.0-2.0); EOSINOPHILS % 1.2 % (0.0-5.0); HEMATOCRIT. 38.1 % (36.0-48.0); HEMOGLOBIN. 12.3 g/dL (12.0-16.0); LYMPHOCYTES % 19.6 % (20.0-50.0); MEAN CORPUSCULAR HEMOGLOBIN 27.8 pg (28.0-32.0); MEAN CORPUSCULAR VOLUME 85.9 fL (81.0-99.0); MEAN PLATELET VOLUME 7.7 fl (7.4-10.4); MONOCYTES % 4.9 % (2.0-8.0); NEUTROPHILS % 73.7 % (40.0-76.0); PLATELET 250 x1000/uL (130-400); RED BLOOD CELL COUNT 4.44 mill/uL (4.2-5.4); RED CELL DISTRIBUTION WIDTH 15.9 % (11.6-14.6)
[2017-09-16 20:26] LABS: CHLORIDE 109 mEq/L (98-107)
[2017-09-16] MEDS ORDERED: MORPHINE SULFATE 4 MG/ML CPJ (NOT FOR IM USE) IV ONE (22:15)
[2017-09-17 02:05] VITALS: BP 121/67
== END 2017-09-17 02:12 | disposition home or self-care (01) ==
LOC: ER 18:20
DX: J84.10 Pulmonary fibrosis, unspecified (principal); I11.0 Hypertensive heart disease with heart failure; I50.9 Heart failure, unspecified; F32.9 Major depressive disorder, single episode, unspecified; J44.9 Chronic obstructive pulmonary disease, unspecified; E78.00 Pure hypercholesterolemia, unspecified; E11.9 Type 2 diabetes mellitus without complications; Z79.82 Long term (current) use of aspirin; Z88.0 Allergy status to penicillin; Z99.81 Dependence on supplemental oxygen; Z90.49 Acquired absence of other specified parts of digestive tract; Z90.89 Acquired absence of other organs; Z91.013 Allergy to seafood; Z91.018 Allergy to other foods; Z88.8 Allergy status to other drugs, medicaments and biological substances
CPT/HCPCS: 36415; 71045; 80053; 84484; 85025; 85610; 87040; 93005; 96361; 96374; 96376; 99285; J2270; J7030; Z7610

== ENCOUNTER 2018-03-05 15:40 | Inpatient (IN) | payer MEDICAID ==
[~2018-03-05] VITALS: Ht 160 cm; Wt 102.1 kg
[~2018-03-05 15:40] MED LIST changes: +HYDR-4001 PO; -METH-611 PO
[2018-03-05] MEDS ORDERED: METHYLPREDNISOLONE SOD SUCC 125 MG/2 ML VIAL IV STA (16:15)
[2018-03-05] MEDS ORDERED: IPRATROPIUM BROMIDE (0.02%) 0.5MG/2.5ML NEB HHN STA (16:15)
[2018-03-05] MEDS ORDERED: ALBUTEROL (0.083%) 2.5MG/3ML NEB HHN STA (16:15)
[2018-03-05 16:59] LABS: BASOPHILS % 0.3 % (0.0-2.0); EOSINOPHILS % 5.1 % (0.0-5.0); HEMATOCRIT. 35.2 % (36.0-48.0); HEMOGLOBIN. 11.4 g/dL (12.0-16.0); LYMPHOCYTES % 28.7 % (20.0-50.0); MEAN CORPUSCULAR VOLUME 80.1 fL (81.0-99.0); MEAN PLATELET VOLUME 8.1 fl (7.4-10.4); MONOCYTES % 4.8 % (2.0-8.0); NEUTROPHILS % 61.1 % (40.0-76.0); PLATELET 357 x1000/uL (130-400); RED BLOOD CELL COUNT 4.39 mill/uL (4.2-5.4); RED CELL DISTRIBUTION WIDTH 18.3 % (11.6-14.6)
[2018-03-05 17:13] LABS: CHLORIDE 106 mEq/L (98-107)
[2018-03-05 21:10] VITALS: BP 99/72
[2018-03-05] MEDS ORDERED: GUAIFENESIN 200MG/10ML SUGAR FREE UDC PO PRN (21:15)
[2018-03-05] MEDS ORDERED: IPRATROPIUM/ALBUTEROL 0.5-3(2.5)MG/3ML NEB INH PRN (21:15)
[2018-03-05] MEDS ORDERED: ACETAMINOPHEN 325MG TABLET PO PRN (21:15)
[2018-03-05] MEDS ORDERED: DOCUSATE SODIUM 100MG CAPSULE PO PRN (21:15)
[2018-03-05] MEDS ORDERED: NA PHOS,M-B/NA PHOS,DI-BA ENEMA 118ML PR PRN (21:15)
[2018-03-05] MEDS ORDERED: CLONIDINE 0.1MG TABLET PO PRN (21:15)
[2018-03-05] MEDS ORDERED: MAGNESIUM/ALUMINUM HYDROXIDE/SIMETHICONE 30ML UDC PO PRN (21:15)
[2018-03-05] MEDS ORDERED: LEVOFLOXACIN 500MG PREMIX 100 ML IV SCH (21:15)
[2018-03-05] MEDS ORDERED: LORAZEPAM 2MG/ML CPJ IV PRN (21:15)
[2018-03-05 22:47] LABS: CHLORIDE 106 mEq/L (98-107)
[2018-03-05] MEDS: LEVOFLOXACIN 500MG PREMIX 100 ML IV SCH (23:34)
[2018-03-06] MEDS: MORPHINE SULFATE 4 MG/ML CPJ (NOT FOR IM USE) IV PRN ×5 (00:42→21:07)
[2018-03-06] MEDS: ONDANSETRON HCL 4MG/2ML INJ IV PRN ×2 (01:17→15:10)
[2018-03-06] MEDS: DIPHENHYDRAMINE 50MG/ML VIAL IV PRN ×3 (01:17→23:07)
[2018-03-06 04:00] VITALS: BP 123/78
[2018-03-06 06:04] LABS: CHLORIDE 107 mEq/L (98-107)
[2018-03-06 06:17] LABS: LDL CHOLESTEROL 113 mg/dL (5-100); T4 FREE 1.04 ng/dL (0.76-1.46)
[2018-03-06 06:20] LABS: HDL CHOLESTEROL 35 mg/dL (40-59)
[2018-03-06 06:37] LABS: BASOPHILS % 0.3 % (0.0-2.0); HEMOGLOBIN. 11.5 g/dL (12.0-16.0); LYMPHOCYTES % 29.2 % (20.0-50.0); MEAN CORPUSCULAR HEMOGLOBIN 26.3 pg (28.0-32.0); MEAN CORPUSCULAR VOLUME 80.1 fL (81.0-99.0); MEAN PLATELET VOLUME 8.4 fl (7.4-10.4); MONOCYTES % 0.7 % (2.0-8.0); NEUTROPHILS % 69.8 % (40.0-76.0); PLATELET 358 x1000/uL (130-400); RED BLOOD CELL COUNT 4.36 mill/uL (4.2-5.4); RED CELL DISTRIBUTION WIDTH 18.5 % (11.6-14.6)
[2018-03-06 08:08] VITALS: BP 104/55
[2018-03-06] MEDS: ASPIRIN 81MG EC TABLET PO SCH (09:06)
[2018-03-06] MEDS: FUROSEMIDE 40MG/4ML VIAL IV SCH (09:06)
[2018-03-06] MEDS: ENOXAPARIN 30MG/0.3ML SYR SUBCUT SCH ×2 (09:07→20:58)
[2018-03-06 12:01] VITALS: BP 104/69
[2018-03-06 15:04] LABS: BG BASE EXCESS 3.6 mmol/L (-2.0-2.0); BG CARBOXYHEMOGLOBIN 0.4 % (0.5-1.5); BG DEOXYHEMOGLOBIN 1.6 % (0.0-5.0); BG FRACTION INSPIRED OXYGEN 32; BG HCO3 ACT 29.1 mmol/L (22.0-26.0); BG METHEMOGLOBIN 0.3 % (0.0-1.5); BG OXYGEN SATURATION 98.4 % (92.0-98.5); BG OXYHEMOGLOBIN 97.7 % (94.0-97.0); BG PCO2 47.7 mmHg (35.0-45.0); BG PH 7.403 (7.350-7.450); BG PO2 128.3 mmHg (75.0-100.0); BG SAMPLE SITE LEFT RADIAL; BG TOTAL HEMOGLOBIN 12.3 g/dL (12.0-18.0); BG VENT MODE NASAL CANNULA
[2018-03-06] MEDS: METHYLPREDNISOLONE SOD SUCC 40 MG/ML VIAL IV SCH ×2 (15:10→23:08)
[2018-03-06 15:56] VITALS: BP 107/71
[2018-03-06] MEDS ORDERED: IPRATROPIUM/ALBUTEROL 0.5-3(2.5)MG/3ML NEB HHN SCH (18:00)
[2018-03-06 20:00] VITALS: BP 116/71
[2018-03-06] MEDS: LEVOFLOXACIN 500MG PREMIX 100 ML IV SCH (23:08)
[2018-03-07] VITALS (7 sets, daily range): BP systolic 97–128; BP diastolic 55–70
[2018-03-07] MEDS: MORPHINE SULFATE 4 MG/ML CPJ (NOT FOR IM USE) IV PRN ×2 (01:39→05:39)
[2018-03-07] MEDS: METHYLPREDNISOLONE SOD SUCC 40 MG/ML VIAL IV SCH ×2 (06:07→15:03)
[2018-03-07] MEDS ORDERED: IPRATROPIUM BROMIDE (0.02%) 0.5MG/2.5ML NEB HHN PRN (07:00)
[2018-03-07] MEDS: FUROSEMIDE 40MG/4ML VIAL IV SCH (08:43)
[2018-03-07] MEDS: DIPHENHYDRAMINE 50MG/ML VIAL IV PRN ×3 (08:52→20:57)
[2018-03-07] MEDS: ASPIRIN 81MG EC TABLET PO SCH (08:53)
[2018-03-07] MEDS: HYDROCODONE/ACETAMINOPHEN 10/325MG TABLET PO PRN ×3 (08:53→21:27)
[2018-03-07] MEDS: ENOXAPARIN 30MG/0.3ML SYR SUBCUT SCH ×2 (08:53→20:57)
[2018-03-07 10:23] LABS: BG BASE EXCESS -0.9 mmol/L (-2.0-2.0); BG DEOXYHEMOGLOBIN 13.8 % (0.0-5.0); BG FRACTION INSPIRED OXYGEN 21; BG HCO3 ACT 23.9 mmol/L (22.0-26.0); BG METHEMOGLOBIN 0.3 % (0.0-1.5); BG OXYGEN SATURATION 86.2 % (92.0-98.5); BG OXYHEMOGLOBIN 85.9 % (94.0-97.0); BG PCO2 40.1 mmHg (35.0-45.0); BG PH 7.393 (7.350-7.450); BG PO2 50.7 mmHg (75.0-100.0); BG SAMPLE SITE LEFT RADIAL; BG TOTAL HEMOGLOBIN 12.2 g/dL (12.0-18.0); BG VENT MODE ROOM AIR
[2018-03-07] MEDS ORDERED: LIDOCAINE HCL/PF 1% 2ML VIAL ONE (13:46)
[2018-03-07] MEDS ORDERED: BUDESONIDE 0.5MG/2ML NEB HHN SCH (20:15)
[2018-03-07] MEDS ORDERED: LEVOFLOXACIN 500MG TABLET PO SCH (23:00)
[2018-03-08 04:00] VITALS: BP 117/66
[2018-03-08] MEDS: DIPHENHYDRAMINE 50MG/ML VIAL IV PRN ×3 (04:06→16:45)
[2018-03-08] MEDS: HYDROCODONE/ACETAMINOPHEN 10/325MG TABLET PO PRN (04:06)
[2018-03-08 08:00] VITALS: BP 97/61
[2018-03-08] MEDS: FUROSEMIDE 40MG/4ML VIAL IV SCH (09:00)
[2018-03-08] MEDS: ENOXAPARIN 30MG/0.3ML SYR SUBCUT SCH ×2 (09:18→20:23)
[2018-03-08] MEDS: ASPIRIN 81MG EC TABLET PO SCH (09:18)
[2018-03-08] MEDS: METHYLPREDNISOLONE SOD SUCC 40 MG/ML VIAL IV SCH ×2 (09:19→16:44)
[2018-03-08 12:00] VITALS: BP 100/60
[2018-03-08 16:00] VITALS: BP 106/62
[2018-03-08 20:00] VITALS: BP 124/85
[2018-03-09] MEDS ORDERED: PREDNISONE 20MG TABLET PO SCH (09:00)
== END 2018-03-08 22:35 | disposition hospice, home (50) | DRG 140 ==
LOC: ER 15:40 → EDBEDREQ 16:21 → 6WST 18:16 → EDBEDREQ 18:19 → ENRESERV 19:45
PROVIDERS: ADMIT Internal Medicine; ATTEND Internal Medicine
DX: J44.1 Chronic obstructive pulmonary disease with (acute) exacerbation (principal); J96.21 Acute and chronic respiratory failure with hypoxia; E11.42 Type 2 diabetes mellitus with diabetic polyneuropathy; I27.20 Pulmonary hypertension, unspecified; I50.32 Chronic diastolic (congestive) heart failure; I11.0 Hypertensive heart disease with heart failure; E78.5 Hyperlipidemia, unspecified; I25.10 Atherosclerotic heart disease of native coronary artery without angina pectoris; J84.112 Idiopathic pulmonary fibrosis; Z51.5 Encounter for palliative care; Z99.81 Dependence on supplemental oxygen; Z88.6 Allergy status to analgesic agent; Z88.0 Allergy status to penicillin; Z91.013 Allergy to seafood; Z88.8 Allergy status to other drugs, medicaments and biological substances; Z91.018 Allergy to other foods; Z79.1 Long term (current) use of non-steroidal anti-inflammatories (NSAID); Z79.899 Other long term (current) drug therapy; Z90.49 Acquired absence of other specified parts of digestive tract
CPT/HCPCS: 36415; 36600; 71045; 80048; 80053; 80061; 82375; 82805; 83880; 84439; 84443; 84484; 85025; 93005; 93306; 94640; 96374; 99285; C1893; J1200; J1650; J1940; J1956; J2270; J2405; J2920; J2930; J3490; J7050; J7611; J7620; J7626

== ENCOUNTER 2018-03-19 11:00 | Emergency (ER) | payer MEDICAID ==
[~2018-03-19] VITALS: Ht 162.6 cm; Wt 90.0 kg
[2018-03-19] MEDS ORDERED: HYDROCODONE/ACETAMINOPHEN 5/325MG TABLET PO ONE (12:15)
[2018-03-19] MEDS ORDERED: ONDANSETRON 4MG ODT PO ONE (12:15)
[2018-03-19 16:51] VITALS: BP 110/67
== END 2018-03-19 16:58 | disposition home or self-care (01) ==
LOC: ER 11:00
DX: S30.0XXA Contusion of lower back and pelvis, initial encounter (principal); W01.0XXA Fall on same level from slipping, tripping and stumbling without subsequent striking against object, initial encounter; Y93.89 Activity, other specified; Y92.092 Bedroom in other non-institutional residence as the place of occurrence of the external cause; J44.9 Chronic obstructive pulmonary disease, unspecified; Z99.81 Dependence on supplemental oxygen
CPT/HCPCS: 72070; 72100; 72170; 81025; 99284; Q0162; Z7610

== ENCOUNTER 2018-03-30 18:00 | Inpatient (IN) | payer MEDICAID ==
[~2018-03-30] VITALS: Ht 165.1 cm; Wt 91.6 kg
[2018-03-30] MEDS ORDERED: METHYLPREDNISOLONE SOD SUCC 125 MG/2 ML VIAL IV STA (18:41)
[2018-03-30] MEDS ORDERED: ALBUTEROL (0.083%) 2.5MG/3ML NEB HHN STA (18:41)
[2018-03-30] MEDS ORDERED: ASPIRIN 81MG TABLET PO ONE (18:45)
[2018-03-30 19:56] LABS: BASOPHILS % 0.9 % (0.0-2.0); EOSINOPHILS % 8.1 % (0.0-5.0); HEMATOCRIT. 34.5 % (36.0-48.0); HEMOGLOBIN. 11.2 g/dL (12.0-16.0); LYMPHOCYTES % 47.1 % (20.0-50.0); MEAN CORPUSCULAR HEMOGLOBIN 26.7 pg (28.0-32.0); MEAN CORPUSCULAR VOLUME 82.3 fL (81.0-99.0); MEAN PLATELET VOLUME 7.8 fl (7.4-10.4); MONOCYTES % 8.3 % (2.0-8.0); NEUTROPHILS % 35.6 % (40.0-76.0); PLATELET 486 x1000/uL (130-400); RED BLOOD CELL COUNT 4.19 mill/uL (4.2-5.4); RED CELL DISTRIBUTION WIDTH 18.8 % (11.6-14.6)
[2018-03-30 20:09] LABS: CHLORIDE 105 mEq/L (98-107)
[2018-03-30 20:18] LABS: HCG SCREEN NEGATIVE
[2018-03-30 21:54] LABS: CLARITY URINE CLOUDY (CLEAR); COLOR URINE DARK YELLOW (YELLOW); KETONES URINE TRACE (NEGATIVE); LEUKOCYTE ESTERASE URINE TRACE (NEGATIVE); NITRITE URINE NEGATIVE (NEGATIVE); OCCULT BLOOD URINE NEGATIVE (NEGATIVE); PROTEIN URINE NEGATIVE (NEGATIVE)
[2018-03-30] MEDS ORDERED: LEVOFLOXACIN 750MG PREMIX 150 ML IV ONE (22:00)
[2018-03-30] MEDS ORDERED: AZITHROMYCIN 500 MG in DEXT 5% WATER 250 ML IV ONE (22:00)
[2018-03-31 03:30] VITALS: BP 117/70
[2018-03-31] MEDS ORDERED: IPRATROPIUM/ALBUTEROL 0.5-3(2.5)MG/3ML NEB HHN PRN (05:15)
[2018-03-31] MEDS ORDERED: LEVOFLOXACIN 500MG PREMIX 100 ML IV SCH ×2 (05:15→23:00)
[2018-03-31] MEDS ORDERED: MORPHINE SULFATE 4 MG/ML CPJ (NOT FOR IM USE) IV PRN (05:15)
[2018-03-31] MEDS ORDERED: TEMAZEPAM 15MG CAPSULE PO PRN (05:15)
[2018-03-31] MEDS ORDERED: HYDROCODONE/ACETAMINOPHEN 5/325MG TABLET PO PRN (05:15)
[2018-03-31] MEDS ORDERED: METHYLPREDNISOLONE SOD SUCC 40 MG/ML VIAL IV SCH ×2 (06:00→14:00)
[2018-03-31] MEDS ORDERED: OMEPRAZOLE 20MG CAPSULE EXTENDED RELEASE PO SCH (07:40)
[2018-03-31 08:00] VITALS: BP 115/54
[2018-03-31] MEDS ORDERED: IPRATROPIUM/ALBUTEROL 0.5-3(2.5)MG/3ML NEB HHN SCH (08:00)
[2018-03-31] MEDS ORDERED: ASPIRIN 81MG TABLET PO SCH (09:00)
[2018-03-31 12:00] VITALS: BP 112/68
[2018-03-31] MEDS ORDERED: IPRATROPIUM BROMIDE (0.02%) 0.5MG/2.5ML NEB HHN PRN (12:00)
[2018-03-31] MEDS: IPRATROPIUM BROMIDE (0.02%) 0.5MG/2.5ML NEB HHN SCH ×2 (13:23→20:30)
[2018-03-31 15:08] LABS: CREATINE KINASE 17 IU/L (26-192); CREATINE KINASE MB FRACTION < 1.0 ng/mL (0.5-3.6)
[2018-03-31 16:00] VITALS: BP 113/71
[2018-03-31 19:00] VITALS: BP 113/71
[2018-03-31 20:00] VITALS: BP 133/82
[2018-03-31] MEDS ORDERED: MONTELUKAST SODIUM 10MG TABLET PO SCH (21:00)
[2018-03-31] MEDS ORDERED: ATORVASTATIN CALCIUM 10MG TABLET PO SCH (21:00)
== END 2018-03-31 21:55 | disposition home or self-care (01) | DRG 139 ==
LOC: ER 18:00 → 7WST 22:30 → EDBEDREQSVC 22:41 → EDBEDREQ 22:41 → EDBEDREQTM 22:41 → ENRESERV 03-31 02:01
PROVIDERS: ADMIT Internal Medicine; ATTEND Internal Medicine
DX: J18.1 Lobar pneumonia, unspecified organism (principal); E43 Unspecified severe protein-calorie malnutrition; I11.0 Hypertensive heart disease with heart failure; I50.9 Heart failure, unspecified; J84.112 Idiopathic pulmonary fibrosis; Z99.81 Dependence on supplemental oxygen; M94.0 Chondrocostal junction syndrome [Tietze]; E78.5 Hyperlipidemia, unspecified; F31.9 Bipolar disorder, unspecified; J44.0 Chronic obstructive pulmonary disease with (acute) lower respiratory infection; J44.1 Chronic obstructive pulmonary disease with (acute) exacerbation; Z68.33 Body mass index [BMI] 33.0-33.9, adult; Z82.49 Family history of ischemic heart disease and other diseases of the circulatory system; Z90.49 Acquired absence of other specified parts of digestive tract; Z91.013 Allergy to seafood; Z79.899 Other long term (current) drug therapy
CPT/HCPCS: 36415; 71045; 82550; 82553; 83880; 84484; 84703; 93005; 93306; 96374; 99285; C1893; J0456; J1956; J2270; J2920; J2930; J7060; J7611; J7620

== ENCOUNTER 2018-05-28 14:18 | Inpatient (IN) | payer MEDICAID ==
[~2018-05-28] VITALS: Ht 315 cm; Wt 100.2 kg
[2018-05-28] MEDS ORDERED: ALBUTEROL (0.083%) 2.5MG/3ML NEB HHN ONE (15:30)
[2018-05-28 16:24] LABS: BASOPHILS % 0.9 % (0.0-2.0); EOSINOPHILS % 6.2 % (0.0-5.0); HEMOGLOBIN. 11.4 g/dL (12.0-16.0); LYMPHOCYTES % 27.6 % (20.0-50.0); MEAN CORPUSCULAR HEMOGLOBIN 25.7 pg (28.0-32.0); MEAN CORPUSCULAR VOLUME 80.8 fL (81.0-99.0); MEAN PLATELET VOLUME 8.3 fl (7.4-10.4); MONOCYTES % 7.4 % (2.0-8.0); NEUTROPHILS % 57.9 % (40.0-76.0); PLATELET 382 x1000/uL (130-400); RED BLOOD CELL COUNT 4.45 mill/uL (4.2-5.4)
[2018-05-28 16:28] LABS: CHLORIDE 100 mEq/L (98-107)
[2018-05-28 16:29] LABS: INR 1.1; PROTHROMBIN TIME 11.4 sec (9.1-11.1)
[2018-05-28 16:35] LABS: HCG SCREEN NEGATIVE
[2018-05-28] MEDS ORDERED: DIPHENHYDRAMINE 50MG/ML VIAL IV PRN (18:45)
[2018-05-28] MEDS ORDERED: NA PHOS,M-B/NA PHOS,DI-BA ENEMA 118ML PR PRN (18:45)
[2018-05-28] MEDS ORDERED: ONDANSETRON HCL 4MG/2ML INJ IV PRN (18:45)
[2018-05-28] MEDS ORDERED: METHYLPREDNISOLONE SOD SUCC 125 MG/2 ML VIAL IV ONE (18:45)
[2018-05-28] MEDS ORDERED: MAGNESIUM/ALUMINUM HYDROXIDE/SIMETHICONE 30ML UDC PO PRN (18:45)
[2018-05-28] MEDS ORDERED: GUAIFENESIN 200MG/10ML SUGAR FREE UDC PO PRN (18:45)
[2018-05-28] MEDS ORDERED: CLONIDINE 0.1MG TABLET PO PRN (18:45)
[2018-05-28] MEDS ORDERED: DOCUSATE SODIUM 100MG CAPSULE PO PRN (18:45)
[2018-05-28] MEDS ORDERED: ACETAMINOPHEN 325MG TABLET PO PRN (18:45)
[2018-05-28] MEDS ORDERED: MORPHINE SULFATE 2 MG/ML CPJ (NOT FOR IM USE) IV PRN (18:45)
[2018-05-28] MEDS ORDERED: IPRATROPIUM/ALBUTEROL 0.5-3(2.5)MG/3ML NEB INH PRN (18:45)
[2018-05-28] MEDS ORDERED: LORAZEPAM 2MG/ML CPJ IV PRN (18:45)
[2018-05-28] MEDS: HYDROCODONE/ACETAMINOPHEN 10/325MG TABLET PO PRN (20:23)
[2018-05-28 21:10] VITALS: BP 117/68
[2018-05-28] MEDS ORDERED: MORPHINE SULFATE 10MG/5ML ORAL SOLN UDC PO PRN (21:45)
[2018-05-28 21:57] VITALS: BP 121/76
[2018-05-28] MEDS ORDERED: LEVOFLOXACIN 500MG PREMIX 100 ML IV SCH (22:30)
[2018-05-28] MEDS: ENOXAPARIN 30MG/0.3ML SYR SUBCUT SCH (22:38)
[2018-05-28 23:39] LABS: CHLORIDE 100 mEq/L (98-107)
[2018-05-29] VITALS: BP 103/50
[2018-05-29 04:00] VITALS: BP 96/67
[2018-05-29] MEDS: HYDROCODONE/ACETAMINOPHEN 10/325MG TABLET PO PRN ×2 (05:06→09:56)
[2018-05-29 08:00] VITALS: BP 96/58
[2018-05-29 08:18] LABS: CHLORIDE 98 mEq/L (98-107)
[2018-05-29 08:32] LABS: HDL CHOLESTEROL 31 mg/dL (40-59)
[2018-05-29 08:33] LABS: LDL CHOLESTEROL 107 mg/dL (5-100)
[2018-05-29] MEDS ORDERED: ASPIRIN 81MG EC TABLET PO SCH (09:00)
[2018-05-29] MEDS: ENOXAPARIN 30MG/0.3ML SYR SUBCUT SCH (09:39)
[2018-05-29 12:00] VITALS: BP 103/57
[2018-05-29 13:58] VITALS: BP 103/57
[2018-05-29] MEDS ORDERED: LEVOFLOXACIN 500MG TABLET PO SCH (21:00)
[2018-05-29] MEDS ORDERED: METHYLPREDNISOLONE SOD SUCC 125 MG/2 ML VIAL IV SCH (22:00)
== END 2018-05-29 15:30 | disposition home or self-care (01) | DRG 203 ==
LOC: ER 14:30 → 5WST 18:03 → EDBEDREQTM 18:38 → EDBEDREQ 18:38 → ENRESERV 19:57
PROVIDERS: ADMIT Internal Medicine; ATTEND Internal Medicine
DX: M94.0 Chondrocostal junction syndrome [Tietze] (principal); J84.10 Pulmonary fibrosis, unspecified; I11.0 Hypertensive heart disease with heart failure; I50.9 Heart failure, unspecified; I25.10 Atherosclerotic heart disease of native coronary artery without angina pectoris; J44.9 Chronic obstructive pulmonary disease, unspecified; E11.9 Type 2 diabetes mellitus without complications; E78.00 Pure hypercholesterolemia, unspecified; Z82.49 Family history of ischemic heart disease and other diseases of the circulatory system; Z91.013 Allergy to seafood; Z88.0 Allergy status to penicillin; Z88.8 Allergy status to other drugs, medicaments and biological substances
CPT/HCPCS: 36415; 71045; 80048; 80061; 83880; 84484; 84703; 93005; 96374; 99285; C1893; J1650; J1956; J2405; J2930; J7050; J7611

== ENCOUNTER 2018-06-06 15:19 | Inpatient (IN) | payer MEDICAID ==
[~2018-06-06] VITALS: Ht 160 cm; Wt 102.1 kg
[2018-06-06] MEDS ORDERED: IPRATROPIUM BROMIDE (0.02%) 0.5MG/2.5ML NEB HHN STA (16:13)
[2018-06-06 17:04] LABS: BASOPHILS % 0.9 % (0.0-2.0); EOSINOPHILS % 9.7 % (0.0-5.0); HEMOGLOBIN. 12.5 g/dL (12.0-16.0); LYMPHOCYTES % 34.1 % (20.0-50.0); MEAN CORPUSCULAR HEMOGLOBIN 25.8 pg (28.0-32.0); MEAN CORPUSCULAR VOLUME 80.7 fL (81.0-99.0); MEAN PLATELET VOLUME 7.9 fl (7.4-10.4); MONOCYTES % 6.3 % (2.0-8.0); PLATELET 355 x1000/uL (130-400); RED BLOOD CELL COUNT 4.83 mill/uL (4.2-5.4); RED CELL DISTRIBUTION WIDTH 17.2 % (11.6-14.6)
[2018-06-06 17:10] LABS: CHLORIDE 103 mEq/L (98-107)
[2018-06-06 17:13] LABS: INR 1.1; PROTHROMBIN TIME 10.6 sec (9.1-11.1)
[2018-06-06 17:29] LABS: HCG SCREEN NEGATIVE
[2018-06-06] MEDS ORDERED: KETOROLAC 30MG/ML VIAL IV ONE (20:00)
[2018-06-06 20:34] LABS: CLARITY URINE CLEAR (CLEAR); COLOR URINE DARK YELLOW (YELLOW); KETONES URINE TRACE (NEGATIVE); LEUKOCYTE ESTERASE URINE TRACE (NEGATIVE); NITRITE URINE NEGATIVE (NEGATIVE); OCCULT BLOOD URINE NEGATIVE (NEGATIVE); PROTEIN URINE NEGATIVE (NEGATIVE)
[2018-06-06 22:30] VITALS: BP 103/62
[2018-06-06 23:00] VITALS: BP 103/62
[2018-06-06] MEDS ORDERED: IPRATROPIUM/ALBUTEROL 0.5-3(2.5)MG/3ML NEB HHN PRN (23:15)
[2018-06-07] MEDS: MONTELUKAST SODIUM 10MG TABLET PO SCH ×2 (00:03→21:47)
[2018-06-07] MEDS: ATORVASTATIN CALCIUM 10MG TABLET PO SCH ×2 (00:04→21:47)
[2018-06-07] MEDS: TRAMADOL 50MG TABLET PO PRN ×2 (00:04→17:39)
[2018-06-07] MEDS: TEMAZEPAM 15MG CAPSULE PO SCH ×2 (00:05→17:39)
[2018-06-07 00:56] LABS: CREATINE KINASE 17 IU/L (26-192)
[2018-06-07 00:59] LABS: CREATINE KINASE MB FRACTION < 1.0 ng/mL (0.5-3.6)
[2018-06-07 04:00] VITALS: BP 93/56
[2018-06-07] MEDS: OMEPRAZOLE 20MG CAPSULE EXTENDED RELEASE PO SCH (06:49)
[2018-06-07 08:00] VITALS: BP 101/70
[2018-06-07] MEDS ORDERED: LIDOCAINE HCL 1% 20ML VIAL (Pyxis) INJ ONE (08:23)
[2018-06-07] MEDS ORDERED: ENOXAPARIN 40MG/0.4ML SYR SUBCUT SCH (09:00)
[2018-06-07] MEDS: ASPIRIN 81MG TABLET PO SCH (09:43)
[2018-06-07 10:29] LABS: CHLORIDE 104 mEq/L (98-107)
[2018-06-07 10:37] LABS: BASOPHILS % 0.9 % (0.0-2.0); EOSINOPHILS % 8.8 % (0.0-5.0); HEMATOCRIT. 38.1 % (36.0-48.0); HEMOGLOBIN. 12.2 g/dL (12.0-16.0); MEAN CORPUSCULAR HEMOGLOBIN 25.9 pg (28.0-32.0); MEAN CORPUSCULAR VOLUME 81.3 fL (81.0-99.0); MEAN PLATELET VOLUME 8.1 fl (7.4-10.4); MONOCYTES % 8.4 % (2.0-8.0); NEUTROPHILS % 48.9 % (40.0-76.0); PLATELET 349 x1000/uL (130-400); RED BLOOD CELL COUNT 4.69 mill/uL (4.2-5.4); RED CELL DISTRIBUTION WIDTH 17.7 % (11.6-14.6)
[2018-06-07 10:44] LABS: CREATINE KINASE 15 IU/L (26-192); CREATINE KINASE MB FRACTION < 1.0 ng/mL (0.5-3.6)
[2018-06-07 12:00] VITALS: BP 94/60
[2018-06-07 16:00] VITALS: BP 99/69
[2018-06-07 19:38] LABS: CREATINE KINASE 21 IU/L (26-192)
[2018-06-07 19:40] LABS: CREATINE KINASE MB FRACTION < 1.0 ng/mL (0.5-3.6)
[2018-06-07 20:00] VITALS: BP 97/69
[2018-06-07] MEDS ORDERED: MEDICATION NOT ON FORMULARY EA (Simvastatin 20 MG) PO SCH (21:00)
[2018-06-07] MEDS: ENOXAPARIN 30MG/0.3ML SYR SUBCUT SCH (21:47)
[2018-06-07] MEDS ORDERED: ONDANSETRON HCL 4MG/2ML INJ IV PRN (22:15)
[2018-06-08] VITALS (8 sets, daily range): BP systolic 91–119; BP diastolic 60–80
[2018-06-08] MEDS: TRAMADOL 50MG TABLET PO PRN ×3 (00:32→20:16)
[2018-06-08] MEDS: IPRATROPIUM/ALBUTEROL 0.5-3(2.5)MG/3ML NEB HHN SCH ×5 (01:05→20:43)
[2018-06-08] MEDS: OMEPRAZOLE 20MG CAPSULE EXTENDED RELEASE PO SCH (06:54)
[2018-06-08 07:01] LABS: EOSINOPHILS % 8.7 % (0.0-5.0); HEMOGLOBIN. 12.1 g/dL (12.0-16.0); LYMPHOCYTES % 43.3 % (20.0-50.0); MEAN CORPUSCULAR HEMOGLOBIN 25.6 pg (28.0-32.0); MEAN CORPUSCULAR VOLUME 82.3 fL (81.0-99.0); MEAN PLATELET VOLUME 8.4 fl (7.4-10.4); MONOCYTES % 6.9 % (2.0-8.0); NEUTROPHILS % 40.1 % (40.0-76.0); PLATELET 301 x1000/uL (130-400); RED BLOOD CELL COUNT 4.74 mill/uL (4.2-5.4); RED CELL DISTRIBUTION WIDTH 17.4 % (11.6-14.6)
[2018-06-08 07:08] LABS: CHLORIDE 105 mEq/L (98-107)
[2018-06-08] MEDS: ASPIRIN 81MG TABLET PO SCH (08:50)
[2018-06-08] MEDS: ENOXAPARIN 30MG/0.3ML SYR SUBCUT SCH (08:50)
[2018-06-08] MEDS ORDERED: HYDROCODONE/ACETAMINOPHEN 5/325MG TABLET PO PRN (11:15)
[2018-06-08] MEDS ORDERED: HYDROCODONE/ACETAMINOPHEN 5/325MG TABLET PO NR (11:30)
[2018-06-08] MEDS: TEMAZEPAM 15MG CAPSULE PO SCH (17:00)
[2018-06-08] MEDS ORDERED: FAMOTIDINE 20MG TABLET PO SCH (21:00)
[2018-06-09] MEDS ORDERED: OMEPRAZOLE 20MG CAPSULE EXTENDED RELEASE PO SCH (06:45)
== END 2018-06-08 21:10 | disposition home or self-care (01) | DRG 198 ==
LOC: ER 15:19 → 5WST 17:50 → EDBEDREQ 17:53 → ENRESERV 20:07
PROVIDERS: ADMIT Internal Medicine; ATTEND Internal Medicine
DX: R07.89 Other chest pain (principal); I25.10 Atherosclerotic heart disease of native coronary artery without angina pectoris; J96.10 Chronic respiratory failure, unspecified whether with hypoxia or hypercapnia; I11.0 Hypertensive heart disease with heart failure; I50.9 Heart failure, unspecified; M41.9 Scoliosis, unspecified; Z99.81 Dependence on supplemental oxygen; E66.09 Other obesity due to excess calories; E78.00 Pure hypercholesterolemia, unspecified; E78.5 Hyperlipidemia, unspecified; F31.9 Bipolar disorder, unspecified; J44.9 Chronic obstructive pulmonary disease, unspecified; G89.4 Chronic pain syndrome; I35.1 Nonrheumatic aortic (valve) insufficiency; Z82.49 Family history of ischemic heart disease and other diseases of the circulatory system; Z90.710 Acquired absence of both cervix and uterus; Z91.013 Allergy to seafood; Z88.0 Allergy status to penicillin; Z88.8 Allergy status to other drugs, medicaments and biological substances; Z86.73 Personal history of transient ischemic attack (TIA), and cerebral infarction without residual deficits; Z68.39 Body mass index [BMI] 39.0-39.9, adult
CPT/HCPCS: 36415; 71045; 80048; 82550; 82553; 83605; 83880; 84484; 84703; 87804; 93005; 94640; 99285; J1642; J1650; J1885; J2405; J3490; J7620

== ENCOUNTER 2018-06-12 17:19 | Inpatient (IN) | payer MEDICAID ==
[~2018-06-12] VITALS: Ht 165.1 cm; Wt 89.8 kg
[2018-06-12] MEDS ORDERED: NITROGLYCERIN 0.4MG TABLET SL SL PRN (18:45)
[2018-06-12] MEDS ORDERED: LEVOFLOXACIN 750MG PREMIX 150 ML IV ONE (18:45)
[2018-06-12] MEDS ORDERED: ASPIRIN 81MG TABLET PO ONE (18:45)
[2018-06-12 19:59] LABS: BASOPHILS % 0.8 % (0.0-2.0); EOSINOPHILS % 5.9 % (0.0-5.0); HEMATOCRIT. 39.7 % (36.0-48.0); HEMOGLOBIN. 12.6 g/dL (12.0-16.0); LYMPHOCYTES % 35.8 % (20.0-50.0); MEAN CORPUSCULAR HEMOGLOBIN 25.9 pg (28.0-32.0); MEAN CORPUSCULAR VOLUME 81.5 fL (81.0-99.0); MEAN PLATELET VOLUME 8.5 fl (7.4-10.4); MONOCYTES % 4.7 % (2.0-8.0); NEUTROPHILS % 52.8 % (40.0-76.0); PLATELET 370 x1000/uL (130-400); RED BLOOD CELL COUNT 4.87 mill/uL (4.2-5.4); RED CELL DISTRIBUTION WIDTH 17.8 % (11.6-14.6)
[2018-06-12 20:03] LABS: CHLORIDE 105 mEq/L (98-107)
[2018-06-12 20:05] LABS: D-DIMER 0.88 mg/L FEU (<0.50); INR 1.1; PARTIAL THROMBOPLASTIN TIME 24.6 sec (23.4-31.0); PROTHROMBIN TIME 10.7 sec (9.1-11.1)
[2018-06-12 20:06] LABS: HCG SCREEN NEGATIVE
[2018-06-12] MEDS ORDERED: FUROSEMIDE 40MG/4ML VIAL IVP ONE (21:15)
[2018-06-12] MEDS ORDERED: DIPHENHYDRAMINE 50MG/ML VIAL IV ONE (21:30)
[2018-06-12] MEDS ORDERED: ENOXAPARIN 80MG/0.8ML SYR SUBCUT ONE (22:15)
[2018-06-12] MEDS ORDERED: IPRATROPIUM/ALBUTEROL 0.5-3(2.5)MG/3ML NEB INH PRN (23:30)
[2018-06-12] MEDS ORDERED: DOCUSATE SODIUM 100MG CAPSULE PO PRN (23:30)
[2018-06-12] MEDS ORDERED: ACETAMINOPHEN 325MG TABLET PO PRN (23:30)
[2018-06-12] MEDS ORDERED: ONDANSETRON HCL 4MG/2ML INJ IV PRN (23:30)
[2018-06-12] MEDS ORDERED: MAGNESIUM/ALUMINUM HYDROXIDE/SIMETHICONE 30ML UDC PO PRN (23:30)
[2018-06-12] MEDS ORDERED: CLONIDINE 0.1MG TABLET PO PRN (23:30)
[2018-06-12] MEDS: HYDROCODONE/ACETAMINOPHEN 5/325MG TABLET PO PRN (23:58)
[2018-06-13] MEDS: IPRATROPIUM BROMIDE (0.02%) 0.5MG/2.5ML NEB HHN SCH ×2 (00:22→20:53)
[2018-06-13 01:01] LABS: CHLORIDE 105 mEq/L (98-107)
[2018-06-13 01:40] VITALS: BP 89/52
[2018-06-13 04:00] VITALS: BP 91/52
[2018-06-13] MEDS: HYDROCODONE/ACETAMINOPHEN 5/325MG TABLET PO PRN ×2 (05:40→18:34)
[2018-06-13 06:44] LABS: BASOPHILS % 0.9 % (0.0-2.0); EOSINOPHILS % 8.1 % (0.0-5.0); HEMATOCRIT. 37.4 % (36.0-48.0); HEMOGLOBIN. 11.9 g/dL (12.0-16.0); LYMPHOCYTES % 43.2 % (20.0-50.0); MEAN CORPUSCULAR HEMOGLOBIN 25.8 pg (28.0-32.0); MEAN CORPUSCULAR VOLUME 81.4 fL (81.0-99.0); MEAN PLATELET VOLUME 8.6 fl (7.4-10.4); MONOCYTES % 6.7 % (2.0-8.0); NEUTROPHILS % 41.1 % (40.0-76.0); PLATELET 309 x1000/uL (130-400); RED CELL DISTRIBUTION WIDTH 17.8 % (11.6-14.6)
[2018-06-13 07:16] LABS: LDL CHOLESTEROL 69 mg/dL (5-100)
[2018-06-13 07:18] LABS: CREATINE KINASE 12 IU/L (26-192); HDL CHOLESTEROL 35 mg/dL (40-59)
[2018-06-13 07:20] LABS: CREATINE KINASE MB FRACTION < 1.0 ng/mL (0.5-3.6)
[2018-06-13 08:00] VITALS: BP 93/63
[2018-06-13] MEDS ORDERED: GUAIFENESIN-DM 200MG-20MG/10ML UDC PO PRN (08:45)
[2018-06-13] MEDS: BUDESONIDE 0.5MG/2ML NEB HHN SCH ×2 (09:32→20:52)
[2018-06-13] MEDS: ASPIRIN 81MG EC TABLET PO SCH (10:19)
[2018-06-13] MEDS: ENOXAPARIN 40MG/0.4ML SYR SUBCUT SCH (10:19)
[2018-06-13 12:00] VITALS: BP 97/52
[2018-06-13] MEDS ORDERED: TRAMADOL 50MG TABLET PO PRN (12:15)
[2018-06-13] MEDS: FUROSEMIDE 40MG TABLET PO SCH (12:15)
[2018-06-13] MEDS: NYSTATIN POWDER 15GM TOP SCH ×3 (13:58→18:32)
[2018-06-13 15:30] LABS: CREATINE KINASE 14 IU/L (26-192)
[2018-06-13 15:31] LABS: CREATINE KINASE MB FRACTION < 1.0 ng/mL (0.5-3.6)
[2018-06-13] MEDS ORDERED: IPRATROPIUM/ALBUTEROL 0.5-3(2.5)MG/3ML NEB HHN PRN (15:45)
[2018-06-13 16:00] VITALS: BP 93/54
[2018-06-13] MEDS ORDERED: IPRATROPIUM/ALBUTEROL 0.5-3(2.5)MG/3ML NEB HHN SCH (16:00)
[2018-06-13] MEDS: DIPHENHYDRAMINE 25MG CAPSULE PO PRN (19:02)
[2018-06-13 20:00] VITALS: BP 91/63
[2018-06-13] MEDS: GUAIFENESIN 600MG ER TABLET PO SCH (20:26)
[2018-06-14] VITALS: BP 109/71
[2018-06-14] MEDS: HYDROCODONE/ACETAMINOPHEN 5/325MG TABLET PO PRN ×4 (02:13→19:36)
[2018-06-14 04:00] VITALS: BP 96/64
[2018-06-14] MEDS: IPRATROPIUM BROMIDE (0.02%) 0.5MG/2.5ML NEB HHN SCH ×4 (04:18→19:48)
[2018-06-14 08:00] VITALS: BP 111/57
[2018-06-14] MEDS: NYSTATIN POWDER 15GM TOP SCH ×3 (09:00→17:00)
[2018-06-14] MEDS: FUROSEMIDE 40MG TABLET PO SCH ×2 (09:00→09:17)
[2018-06-14] MEDS: ENOXAPARIN 40MG/0.4ML SYR SUBCUT SCH (09:17)
[2018-06-14] MEDS: ASPIRIN 81MG EC TABLET PO SCH (09:17)
[2018-06-14] MEDS: GUAIFENESIN 600MG ER TABLET PO SCH (09:22)
[2018-06-14 12:00] VITALS: BP 94/55
[2018-06-14] MEDS: BUDESONIDE 0.5MG/2ML NEB HHN SCH ×2 (12:58→21:00)
[2018-06-14] MEDS: DIPHENHYDRAMINE 25MG CAPSULE PO PRN (13:51)
[2018-06-14 16:00] VITALS: BP 87/52
[2018-06-14 20:29] VITALS: BP 94/65
[2018-06-14] MEDS ORDERED: ENOXAPARIN 30MG/0.3ML SYR SUBCUT SCH (21:00)
== END 2018-06-14 21:10 | disposition home or self-care (01) | DRG 133 ==
LOC: ER 17:19 → 5WST 21:19 → EDBEDREQ 21:21 → ENRESERV 06-13 00:28
PROVIDERS: ADMIT Internal Medicine; ATTEND Internal Medicine
DX: J96.20 Acute and chronic respiratory failure, unspecified whether with hypoxia or hypercapnia (principal); I50.43 Acute on chronic combined systolic (congestive) and diastolic (congestive) heart failure; J84.10 Pulmonary fibrosis, unspecified; Z99.81 Dependence on supplemental oxygen; J44.1 Chronic obstructive pulmonary disease with (acute) exacerbation; E11.9 Type 2 diabetes mellitus without complications; E78.00 Pure hypercholesterolemia, unspecified; E66.9 Obesity, unspecified; G89.29 Other chronic pain; E78.5 Hyperlipidemia, unspecified; I11.0 Hypertensive heart disease with heart failure; Z91.013 Allergy to seafood; Z88.0 Allergy status to penicillin; Z88.8 Allergy status to other drugs, medicaments and biological substances; Z91.018 Allergy to other foods; Z79.899 Other long term (current) drug therapy
CPT/HCPCS: 36415; 71045; 78582; 80048; 80061; 82550; 82553; 83605; 83735; 83880; 84134; 84145; 84443; 84484; 84703; 85379; 93005; 93970; 96365; 96366; 99285; A9558; J1200; J1650; J1956; J7620; J7626; Q0163

== ENCOUNTER 2018-06-23 23:38 | Emergency (ER) | payer MEDICAID ==
[~2018-06-23] VITALS: Ht 160 cm; Wt 102.5 kg
[2018-06-24] MEDS ORDERED: LORAZEPAM 1MG TABLET PO ONE
[2018-06-24 00:42] LABS: BASOPHILS % 0.8 % (0.0-2.0); EOSINOPHILS % 6.7 % (0.0-5.0); HEMATOCRIT. 40.9 % (36.0-48.0); LYMPHOCYTES % 49.6 % (20.0-50.0); MEAN CORPUSCULAR HEMOGLOBIN 26.2 pg (28.0-32.0); MEAN CORPUSCULAR VOLUME 82.5 fL (81.0-99.0); MEAN PLATELET VOLUME 7.9 fl (7.4-10.4); NEUTROPHILS % 37.9 % (40.0-76.0); PLATELET 376 x1000/uL (130-400); RED BLOOD CELL COUNT 4.96 mill/uL (4.2-5.4); RED CELL DISTRIBUTION WIDTH 18.7 % (11.6-14.6)
[2018-06-24 00:51] LABS: CHLORIDE 105 mEq/L (98-107)
[2018-06-24 00:53] LABS: HCG SCREEN NEGATIVE
[2018-06-24 04:35] VITALS: BP 107/70
== END 2018-06-24 05:04 | disposition home or self-care (01) ==
LOC: ER 23:38
DX: R06.03 Acute respiratory distress (principal); J84.10 Pulmonary fibrosis, unspecified; E78.00 Pure hypercholesterolemia, unspecified; I11.0 Hypertensive heart disease with heart failure; I50.9 Heart failure, unspecified; E11.9 Type 2 diabetes mellitus without complications; J44.9 Chronic obstructive pulmonary disease, unspecified; Z99.81 Dependence on supplemental oxygen; Z91.013 Allergy to seafood; Z91.018 Allergy to other foods; Z88.6 Allergy status to analgesic agent; Z88.0 Allergy status to penicillin; Z79.899 Other long term (current) drug therapy
CPT/HCPCS: 36415; 71045; 80053; 84703; 85025; 93005; 99284; Z7610

== ENCOUNTER 2018-06-26 19:53 | Emergency (ER) | payer MEDICAID, OTHER ==
[~2018-06-26] VITALS: Ht 160 cm; Wt 102.0 kg
[2018-06-26] MEDS ORDERED: IPRATROPIUM/ALBUTEROL 0.5-3(2.5)MG/3ML NEB INH PRN (21:15)
[2018-06-26] MEDS ORDERED: DOCUSATE SODIUM 100MG CAPSULE PO PRN (21:15)
[2018-06-26] MEDS ORDERED: GUAIFENESIN 200MG/10ML SUGAR FREE UDC PO PRN (21:15)
[2018-06-26] MEDS ORDERED: MAGNESIUM/ALUMINUM HYDROXIDE/SIMETHICONE 30ML UDC PO PRN (21:15)
[2018-06-26] MEDS ORDERED: ONDANSETRON HCL 4MG/2ML INJ IV PRN (21:15)
[2018-06-26] MEDS ORDERED: ACETAMINOPHEN 325MG TABLET PO PRN (21:15)
[2018-06-26] MEDS ORDERED: CLONIDINE 0.1MG TABLET PO PRN (21:15)
[2018-06-26] MEDS ORDERED: BUDESONIDE 0.5MG/2ML NEB HHN SCH (21:30)
[2018-06-26] MEDS: HYDROCODONE/ACETAMINOPHEN 5/325MG TABLET PO PRN (22:13)
[2018-06-26] MEDS ORDERED: IOHEXOL-350 100 ML BOTTLE ONE (23:06)
[2018-06-26 23:27] LABS: CHLORIDE 107 mEq/L (98-107)
[2018-06-26 23:34] LABS: BASOPHILS % 0.9 % (0.0-2.0); EOSINOPHILS % 7.1 % (0.0-5.0); HEMATOCRIT. 39.5 % (36.0-48.0); HEMOGLOBIN. 12.6 g/dL (12.0-16.0); LYMPHOCYTES % 40.9 % (20.0-50.0); MEAN CORPUSCULAR HEMOGLOBIN 26.2 pg (28.0-32.0); MEAN CORPUSCULAR VOLUME 82.1 fL (81.0-99.0); MEAN PLATELET VOLUME 8.7 fl (7.4-10.4); MONOCYTES % 5.6 % (2.0-8.0); NEUTROPHILS % 45.5 % (40.0-76.0); PLATELET 378 x1000/uL (130-400); RED BLOOD CELL COUNT 4.81 mill/uL (4.2-5.4); RED CELL DISTRIBUTION WIDTH 18.4 % (11.6-14.6)
[2018-06-26 23:35] LABS: CREATINE KINASE MB FRACTION < 1.0 ng/mL (0.5-3.6)
[2018-06-26 23:36] LABS: LDL CHOLESTEROL 67 mg/dL (5-100)
[2018-06-26 23:37] LABS: CREATINE KINASE 18 IU/L (26-192)
[2018-06-26 23:38] LABS: HDL CHOLESTEROL 43 mg/dL (40-59)
[2018-06-27 01:24] LABS: CLARITY URINE CLEAR (CLEAR); COLOR URINE YELLOW (YELLOW); KETONES URINE NEGATIVE (NEGATIVE); LEUKOCYTE ESTERASE URINE NEGATIVE (NEGATIVE); NITRITE URINE NEGATIVE (NEGATIVE); OCCULT BLOOD URINE NEGATIVE (NEGATIVE); PH URINE 6.5 (4.5-8.0); PROTEIN URINE NEGATIVE (NEGATIVE); SPECIFIC GRAVITY URINE 1.071 (1.005-1.030)
[2018-06-27 01:45] LABS: *BARBITURATES SCREEN URINE NEGATIVE (NEGATIVE); *BENZODIAZEPINES SCREEN URINE NEGATIVE (NEGATIVE)
[2018-06-27 01:46] LABS: *AMPHETAMINES SCREEN URINE NEGATIVE (NEGATIVE); CANNABINOID URINE SCREEN NEGATIVE (NEGATIVE); METHADONE URINE SCREEN NEGATIVE (NEGATIVE); PHENCYCLIDINE URINE SCREEN NEGATIVE (NEGATIVE)
[2018-06-27 01:57] LABS: *COCAINE SCREEN URINE PRESUMTIVE POSITIVE (NEGATIVE); OPIATES URINE SCREEN PRESUMTIVE POSITIVE (NEGATIVE)
[2018-06-27] MEDS: HYDROCODONE/ACETAMINOPHEN 5/325MG TABLET PO PRN (02:30)
[2018-06-27 05:45] LABS: EOSINOPHILS % 8.8 % (0.0-5.0); HEMATOCRIT. 36.3 % (36.0-48.0); HEMOGLOBIN. 11.7 g/dL (12.0-16.0); LYMPHOCYTES % 44.1 % (20.0-50.0); MEAN CORPUSCULAR HEMOGLOBIN 26.4 pg (28.0-32.0); MEAN CORPUSCULAR VOLUME 82.2 fL (81.0-99.0); MONOCYTES % 6.5 % (2.0-8.0); NEUTROPHILS % 39.6 % (40.0-76.0); PLATELET 314 x1000/uL (130-400); RED BLOOD CELL COUNT 4.42 mill/uL (4.2-5.4); RED CELL DISTRIBUTION WIDTH 18.4 % (11.6-14.6)
[2018-06-27 05:53] LABS: CHLORIDE 107 mEq/L (98-107)
[2018-06-27 05:57] VITALS: BP 103/62
[2018-06-27] MEDS ORDERED: ENOXAPARIN 40MG/0.4ML SYR SUBCUT SCH (09:00)
[2018-06-27] MEDS ORDERED: LACTULOSE 20G/30ML UDC PO PRN (15:15)
[2018-06-27] MEDS ORDERED: BISACODYL 5MG TABLET PO PRN (15:15)
[2018-06-27] MEDS ORDERED: IPRATROPIUM/ALBUTEROL 0.5-3(2.5)MG/3ML NEB HHN SCH (16:00)
[2018-06-27] MEDS ORDERED: ACETYLCYSTEINE 100MG/ML 10% VIAL 4ML INH SCH (22:00)
== END 2018-06-27 17:00 | disposition left against medical advice (07) ==
LOC: ER 19:53 → EDBEDREQTM 22:07 → EDBEDREQ 22:07 → ER 06-27 17:00 → CANRESERV 06-27 20:18 → ENRESERV 06-27 20:18 → CANRESERV 06-27 20:23 → CANBEDREQ 06-27 21:23
DX: R07.2 Precordial pain (principal); I11.0 Hypertensive heart disease with heart failure; I50.9 Heart failure, unspecified; I27.20 Pulmonary hypertension, unspecified; J84.10 Pulmonary fibrosis, unspecified; E11.9 Type 2 diabetes mellitus without complications
CPT/HCPCS: 36415; 71275; 80048; 80053; 80061; 80305; 81003; 81025; 82550; 82553; 83605; 83690; 83735; 83880; 84443; 84484; 85025; 85379; 86850; 86900; 86901; 87040; 93005; 93970; 99284; J7626; Q9967; Z7610